=== PATIENT | female | born 1930 | race Caucasian/White ===

== ENCOUNTER → 2016-06-14 | Outpatient (REF) ==
[~2016-06-14] MED LIST: ALDA50TA2 PO; CIPR500T89 PO; COLA50CA3 PO; DRISDOL PO; ERGO5000 PO; METO50TA4 PO; OMEP40CA2 PO; POTA10TA18 PO; PRIN10TA PO; SPIR25TA2 PO; SYNT100T PO; SYNT88TA2 PO; TYLE325T5 PO
[2016-06-15 10:26] LABS: CALCIUM OXALATE CRYSTALS SMALL
== END ==
PROVIDERS: ATTEND Nurse Practitioner Family
DX: R35.0 Frequency of micturition (principal)

== ENCOUNTER 2016-07-01 09:10 | Emergency (ER) | payer MEDICARE, MEDICAID ==
[~2016-07-01] VITALS: Ht 149.9 cm; Wt 76.7 kg
[2016-07-01] MEDS ORDERED: LISI-538 PO (09:46)
[2016-07-01] MEDS ORDERED: VITA200016 PO (09:46)
[2016-07-01] MEDS ORDERED: ACET650T2 PO (09:46)
[2016-07-01] MEDS ORDERED: METO200T15 PO (09:46)
[2016-07-01] MEDS ORDERED: [UNRECOGNIZED DRUG - CODE] PO (09:46)
[2016-07-01] MEDS ORDERED: LEVO88TA3 PO (09:46)
[2016-07-01] MEDS ORDERED: PREG50CA PO (09:46)
[2016-07-01] MEDS ORDERED: SPIR50TA2 PO (09:46)
[2016-07-01] MEDS ORDERED: ASPI81TA85 PO (09:46)
[2016-07-01] MEDS ORDERED: PRESCAP6 PO (09:46)
[2016-07-01] MEDS ORDERED: MIRT1TAB PO (09:46)
--- NOTE | 2016-07-01 10:25 | REP ---
Altered mental status. COMPARISON: 04/01/2013 Cerebral and cerebellar atrophic changes are noted status quo with periventricular lucencies and deep white matter lucencies consistent with deep white matter ischemic disease, also stable. There is no shift of the midline structures. There is no change in the appearance of the ventricles or sulci. There is no evidence of an acute intracranial hemorrhagic or non-hemorrhagic event. There is no change in the appearance of the skull. There is mucosal thickening in the ethmoid bulla and sphenoid sinuses. IMPRESSION: No evidence of acute intracranial pathology with chronic changes as described above. Paranasal sinus mucosal thickening as described above. Signed by Danyel Garcia DO 07/01/2016 11:29 A
[2016-07-01 10:41] LABS: MEAN CORPUSCULAR HEMOGLOBIN 31.1 pg (27.0-33.0); MEAN CORPUSCULAR HGB CONC 32.7 g/dl (32.0-36.5); MEAN CORPUSCULAR VOLUME 95.3 fl (80.0-96.0); PLATELET COUNT, AUTOMATED 252 k/mm3 (150-450); RED CELL DISTRIBUTION WIDTH 12.5 % (11.5-14.5); WHITE BLOOD COUNT 9.5 K/mm3 (4.0-10.0)
[2016-07-01 10:51] LABS: ALBUMIN 3.7 GM/DL (3.2-5.2); BILIRUBIN,DIRECT 0.2 MG/DL (0.0-0.2); CALCIUM LEVEL 10.8 MG/DL (8.8-10.2); CREATININE FOR GFR 1.08 MG/DL (0.55-1.02); POTASSIUM SERUM 4.3 MEQ/L (3.5-5.1); TOTAL PROTEIN 7.4 GM/DL (6.4-8.2)
[2016-07-01 11:04] LABS: BANDS 3 % (< 11); BASOPHILS 1 % (0-4)
[2016-07-01 11:05] LABS: ANISOCYTOSIS 1+
[2016-07-01 13:39] VITALS: BP 125/57
--- NOTE | 2016-07-01 18:00 | ECGEPIP ---
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
== END 2016-07-01 13:46 | disposition home or self-care (01) ==
LOC: EDBD 09:10 → M ED 10:52
DX: R29.6 Repeated falls (principal); Z79.899 Other long term (current) drug therapy

== ENCOUNTER 2016-07-03 12:11 | Emergency (ER) | payer MEDICARE, MEDICAID ==
[~2016-07-03] VITALS: Ht 152.4 cm; Wt 63.5 kg
[~2016-07-03 12:11] MED LIST changes: +ACET650T2 PO; +ASPI81TA85 PO; +LEVO88TA3 PO; +LISI-538 PO; +METO200T15 PO; +MIRT1TAB PO; +PREG50CA PO; +PRESCAP6 PO; +SPIR50TA2 PO; +VITA200016 PO; +[UNRECOGNIZED DRUG - CODE] PO
[2016-07-03] MEDS ORDERED: NS 500 ML IV ONE (13:00)
[2016-07-03 13:29] LABS: BASO % 0.5 % (0.0-1.0); EOS # 0.4 K/mm3 (0.0-0.50); EOS % 5.4 % (0.0-3.0); LARGE UNSTAINED CELL # 0.2 K/mm3 (0.0-0.4); LARGE UNSTAINED CELL % 3.5 % (0.0-4.0); LYMPH # 1.6 K/mm3 (1.5-4.5); LYMPH % 23.8 % (24.0-44.0); MEAN CORPUSCULAR HEMOGLOBIN 30.1 pg (27.0-33.0); MEAN CORPUSCULAR HGB CONC 32.3 g/dl (32.0-36.5); MEAN CORPUSCULAR VOLUME 93.1 fl (80.0-96.0); MONO # 0.5 K/mm3 (0.0-0.8); MONO % 7.5 % (0.0-5.0); NEUTROPHILS % 59.3 % (36.0-66.0); PLATELET COUNT, AUTOMATED 232 k/mm3 (150-450); RED CELL DISTRIBUTION WIDTH 12.7 % (11.5-14.5); WHITE BLOOD COUNT 6.8 K/mm3 (4.0-10.0)
[2016-07-03 13:36] LABS: ALBUMIN 3.2 GM/DL (3.2-5.2); ALBUMIN/GLOBULIN RATIO 0.89 (1.00-1.93); BILIRUBIN,DIRECT 0.1 MG/DL (0.0-0.2); BILIRUBIN,TOTAL 0.6 MG/DL (0.2-1.0); CALCIUM LEVEL 10.5 MG/DL (8.8-10.2); CREATININE FOR GFR 1.06 MG/DL (0.55-1.02); GLOMERULAR FILTRATION RATE 52.1 (>32); POTASSIUM SERUM 4.2 MEQ/L (3.5-5.1); TOTAL PROTEIN 6.8 GM/DL (6.4-8.2)
--- NOTE | 2016-07-03 15:32 | REP ---
CT BRAIN WITHOUT CONTRAST: 07/03/2016. Clinical history: Lower cervical spine tenderness. The patient fell 2 days ago[address] Negative head CT at that time. Comparison: None. Technique: Axial soft-tissue and bone window settings with coronal and sagittal bone reconstructions provided. Sagittal reconstructions show straightening of the normal cervical lordosis. There is spondylosis with marked narrowing of the disc space at C5-6 and C6-7 including anterior and posterior osteophytes at both of those levels and also at T1-2. There is narrowing with smaller osteophytes at C7-T1. Disc space heights at the C2-3 through C4-5 levels are maintained. There are lucencies suggesting erosions in the dens and a expanded pannus with thin rim calcification. There is air in the small space between the dens and anterior arch of the C1 vertebral body appearing to extend from the pannus is an air bubble at its margin and then some in the neural canal at the craniocervical junction. I am not aware of the recent spinal tap. There is an erosion at the distal end of the C7 spinous process and there is a pannus or extensive calcification forming along the posterior longitudinal ligament adjacent to the C7 and T1 spinous processes up towards T6, this may what you are palpating on clinical examination. I do not see an acute compression fracture of any these vertebral bodies. The skull base portion included was without fracture or destructive lesion. The pannus has a diameter of 19 mm vertical x 12.7 mm AP x 22 mm transverse. It has some extension anteriorly below the anterior arch of C1 and is circumferential around the dens. This is causing some central canal stenosis with the AP canal diameter diminished at 8.6 mm at the normally capacious craniocervical junction and C1 level. At C2-3 there is no disc bulge or herniation and no spinal or foraminal stenosis. At C3-4 small posterior osteophytic ridges without spinal stenosis. The foramen on the right is ample on the left with some uncinate and facet spurs mildly narrowed. At C4-5 minimal disc bulge without spinal stenosis. The foramen is slightly narrowed on the left, normal on the right. At C5-6 posterior osteophytic ridging with our disc and asymmetric bulge towards the right central canal marginally adequate foramina mildly stenotic bilaterally due to combined factors. At C6-7 posterior osteophytic ridging causing central canal stenosis with the foramina adequate on the left and marginally adequate on the right. At C7-T1 there is a few millimeters of anterolisthesis of C7 on T1 felt related to facet arthritis. There is no central canal stenosis. Foramina show mild encroachment on the left and right due to uncinate spurs. At T1-T2 posterior osteophytic ridges without central canal stenosis. Foramina adequate. Posterior ribs grossly intact. The lung apices without pneumothorax or infiltrate. There is no effusion in the upper chest. There is also pannus over medial clavicular joints with the manubrium. Bones are demineralized. Impression: 1. The expansile mass arising from the dens with a rim calcification indicating that this is a chronic finding (and not an acute injury) with erosive changes in the dens and narrowing of the dens anterior arch of C1 interval. This causes central canal stenosis with AP canal diameter only 8.6 mm. 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 In addition there were a few air bubbles immediately adjacent to this pannus anterior to the cord at the craniocervical junction and one of them is at the margin of the pannus with air in the interval between the anterior arch of C1 and dens. If the patient has not had a spinal tap recently than air from this location and a degenerative phenomenon related to the pannus verses infection would have to be considered. This may also be still in the epidural space displaced by the significant pannus. 2. Degenerative disc changes at other levels, greatest at the C5-6 and C6-7 with central canal stenosis and some scattered areas of foraminal encroachment. Facet arthropathy noted at multiple levels throughout the spine. 3. Extensive calcification along the posterior longitudinal ligament and adjacent and surrounding the posterior margins of C7 and T1 spinous processes up to C6. Again this suggests spondyloarthropathy. MR may be helpful for evaluation of cervical cord as the proximal cervical cord would have stenosis at the level of C1 where this large pannus is present. All of this was discussed with Dr. Lu from the emergency room, by phone. Signed by Jeovanny Frank MD 07/03/2016 05:13 P
--- NOTE | 2016-07-03 16:44 | REP ---
Cervical spine series: Nine views: History: Please do flexion/extension in soft collar. Findings: Lateral views done in flexion/extension show no subluxation between the dens and C1. There is advanced osteoarthritis and narrowing between the anterior arch of C1 and the dens. The clivus is not well seen on these lateral views. There are degenerative disc changes at C4-5, C5-6, and C6-7. Some facet hypertrophy is seen in the midcervical spine. C1-2 alignment is normal on open-mouth odontoid views. The patient is edentulous. Oblique radiographs do not show neural foramina optimally. Impression: No evidence of C1-C2 instability on flexion and extension lateral views. The position of the clivus and skull base structures are less than optimally seen on these views. Osteoarthritic facet disease and degenerative disc disease noted. Signed by Ruben Burrell MD 07/03/2016 07:20 P
--- NOTE | 2016-07-03 18:42 | REP ---
MRI cervical spine without contrast: History: Evaluate for spinal stenosis. Pain in the lower cervical spine. Comparison is made with CT images from earlier on this date. Plain radiographs are also obtained today. Technique: Sagittal and axial T1 and T2-weighted scans are acquired in the usual fashion with and without fat saturation. Sequences include spin echo, turbo spin-echo, and STIR imaging sequences. MRI findings: At the craniocervical junction there is a large amount of odontoid pannus tissue and in the epidural space at the ventral aspect of the craniocervical junction. This disc displaces the cord dorsally and produces central canal stenosis mild in degree at the C1 and upper C2 level. AP dimension of the canal at this level is 8 mm in midline sagittal dimension. There is subarachnoid space seen ventral and dorsal to the cord at this level. However, higher up, at the tip of the clivus along rostral edge of the pannus there is a T2 hyperintense, T1 hypointense lesion compatible with a synovial cyst producing fairly impressive dorsal displacement of the cervicomedullary junction. This presumed synovial cyst measures 18 mm in anteroposterior span by 12 mm craniocaudal by 15 mm medial to lateral. The cyst and occupies space between the to distal vertebral arteries. The cervical medullary junction is compressed along its ventral aspect particularly to the left of midline and displaced dorsally 5-7 mm. At C5-6 there is degenerative disc disease and posterior osteophytic ridging with mild central canal stenosis and right-sided uncovertebral spurring and neural foraminal narrowing. There is mild left-sided uncovertebral spurring. At C6-7 there are similar findings with bilateral uncovertebral spurring. No significant central canal stenosis is seen. There are degenerative disc changes in the upper thoracic spine and a central small disc protrusion is seen at the T3-4 disc level in the upper thoracic spine. No extra spinal abnormality is seen. Impression: 1. Degenerative spondylosis in the lower cervical spine with C5-6 central canal stenosis and bilateral uncovertebral spurring. 2. Mild uncovertebral spurring bilaterally at C6-7. 3. 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 There is mild central canal stenosis at C1-C2 level. 4. 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 This measures 18 x 12 x 15 mm. Signed by Ruben Burrell MD 07/03/2016 07:22 P
[2016-07-03 20:43] VITALS: BP 141/68
--- NOTE | 2016-07-04 08:55 | ECGEPIP ---
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
== END 2016-07-03 21:17 | disposition home or self-care (01) ==
LOC: EDBD 12:11 → M ED 13:10
DX: R11.0 Nausea (principal); R19.7 Diarrhea, unspecified; M71.30 Other bursal cyst, unspecified site; M47.812 Spondylosis without myelopathy or radiculopathy, cervical region; I12.9 Hypertensive chronic kidney disease with stage 1 through stage 4 chronic kidney disease, or unspecified chronic kidney disease; N18.3 Chronic kidney disease, stage 3 (moderate); M19.90 Unspecified osteoarthritis, unspecified site
CPT/HCPCS: 72052; 72125; 72156; 80048; 80076; 81001; 83605; 83690; 85025; 93005; 93041; 96360; 99285; A9576

== ENCOUNTER → 2016-07-26 | Outpatient (REF) | payer MEDICARE, MEDICAID ==
[~2016-07-26] MED LIST changes: +CETI10TA PO; +CIPR-250 PO; +SALI0.653
== END ==
PROVIDERS: ATTEND Internal Medicine
DX: R31.29 Other microscopic hematuria (principal)

== ENCOUNTER 2016-07-28 13:21 | Emergency (ER) | payer MEDICARE, MEDICAID ==
[~2016-07-28] VITALS: Ht 149.9 cm; Wt 76.7 kg
[~2016-07-28 13:21] MED LIST changes: -CETI10TA PO; -CIPR-250 PO; -SALI0.653
[2016-07-28] MEDS ORDERED: CETI10TA PO (13:54)
[2016-07-28] MEDS ORDERED: SALI0.653 (13:54)
[2016-07-28] MEDS ORDERED: CIPR-250 PO (13:54)
[2016-07-28 16:09] LABS: BASO # 0.1 K/mm3 (0.0-0.2); BASO % 0.7 % (0.0-1.0); EOS # 0.4 K/mm3 (0.0-0.50); EOS % 5.1 % (0.0-3.0); LARGE UNSTAINED CELL # 0.1 K/mm3 (0.0-0.4); LARGE UNSTAINED CELL % 1.6 % (0.0-4.0); LYMPH # 2.1 K/mm3 (1.5-4.5); LYMPH % 22.4 % (24.0-44.0); MEAN CORPUSCULAR HEMOGLOBIN 30.3 pg (27.0-33.0); MEAN CORPUSCULAR HGB CONC 31.7 g/dl (32.0-36.5); MEAN CORPUSCULAR VOLUME 95.5 fl (80.0-96.0); MONO # 0.4 K/mm3 (0.0-0.8); MONO % 5.1 % (0.0-5.0); NEUTROPHILS # 5.6 K/mm3 (1.8-7.7); PLATELET COUNT, AUTOMATED 261 k/mm3 (150-450); RED CELL DISTRIBUTION WIDTH 12.7 % (11.5-14.5); WHITE BLOOD COUNT 8.6 K/mm3 (4.0-10.0)
[2016-07-28 16:21] LABS: CALCIUM LEVEL 13.3 MG/DL (8.8-10.2); CREATININE FOR GFR 1.12 MG/DL (0.55-1.02); GLOMERULAR FILTRATION RATE 48.9 (>32); THYROXINE (T4) 8.8 UG/DL (4.5-12.0)
[2016-07-28 16:30] LABS: POTASSIUM SERUM 5.3 MEQ/L (3.5-5.1)
[2016-07-28] MEDS ORDERED: CIPROFLOXACIN 500 MG TAB PO ONE (16:30)
[2016-07-28] MEDS ORDERED: CIPR500T89 PO (16:55)
[2016-07-28 20:03] VITALS: BP 128/65
== END 2016-07-28 20:05 | disposition home or self-care (01) ==
LOC: EDBD 13:21 → M ED 16:22
DX: N39.0 Urinary tract infection, site not specified (principal); I12.9 Hypertensive chronic kidney disease with stage 1 through stage 4 chronic kidney disease, or unspecified chronic kidney disease; M19.90 Unspecified osteoarthritis, unspecified site; N18.9 Chronic kidney disease, unspecified; E03.9 Hypothyroidism, unspecified; F03.90 Unspecified dementia, unspecified severity, without behavioral disturbance, psychotic disturbance, mood disturbance, and anxiety; Z88.5 Allergy status to narcotic agent; Z88.6 Allergy status to analgesic agent; Z88.2 Allergy status to sulfonamides; Z79.82 Long term (current) use of aspirin; Z79.899 Other long term (current) drug therapy

== ENCOUNTER → 2016-08-04 | Outpatient (REF) | payer MEDICARE, MEDICAID ==
[~2016-08-04] MED LIST changes: +CETI10TA PO; +CIPR-250 PO; +SALI0.653
== END ==
LOC: SKLAB3 09:51
PROVIDERS: ATTEND Internal Medicine
DX: R53.83 Other fatigue (principal)

== ENCOUNTER → 2016-08-04 | Outpatient (REF) | payer MEDICARE, MEDICAID ==
[2016-08-04 07:59] LABS: CALCIUM LEVEL 13.4 MG/DL (8.8-10.2); CREATININE FOR GFR 1.21 MG/DL (0.55-1.02); GLOMERULAR FILTRATION RATE 44.7 (>32); POTASSIUM SERUM 4.6 MEQ/L (3.5-5.1)
== END ==
LOC: SKLAB3 02:26
PROVIDERS: ATTEND Internal Medicine
DX: I10 Essential (primary) hypertension (principal); E83.52 Hypercalcemia; R29.818 Other symptoms and signs involving the nervous system; R53.83 Other fatigue

== ENCOUNTER → 2016-08-07 | Outpatient (REF) | payer MEDICARE, MEDICAID ==
[2016-08-07 10:52] LABS: CALCIUM LEVEL 12.8 MG/DL (8.8-10.2); GLOMERULAR FILTRATION RATE 55.7 (>32); POTASSIUM SERUM 4.1 MEQ/L (3.5-5.1)
[2016-08-07 13:38] LABS: PHOSPHORUS LEVEL 1.9 MG/DL (2.5-4.9)
== END ==
LOC: SKLAB3 09:06
PROVIDERS: ATTEND Internal Medicine
DX: E03.9 Hypothyroidism, unspecified (principal); N39.0 Urinary tract infection, site not specified

== ENCOUNTER → 2016-08-08 | Outpatient (REF) | payer MEDICARE, MEDICAID ==
[2016-08-08 10:50] LABS: ANION GAP 6 MEQ/L (8-16); BLOOD UREA NITROGEN 17 MG/DL (7-18); CARBON DIOXIDE LEVEL 26 MEQ/L (21-32); CHLORIDE LEVEL 111 MEQ/L (98-107); CREATININE FOR GFR 0.92 MG/DL (0.55-1.02); GLOMERULAR FILTRATION RATE > 60.0 (>32); GLUCOSE, FASTING 98 MG/DL (83-110); PHOSPHORUS LEVEL 1.5 MG/DL (2.5-4.9); SODIUM LEVEL 143 MEQ/L (136-145)
== END ==
LOC: SKLAB3 09:43
PROVIDERS: ATTEND Family Medicine
DX: E83.52 Hypercalcemia (principal)

== ENCOUNTER → 2016-08-10 | Outpatient (REF) | payer MEDICAID, MEDICARE ==
[~2016-08-10] MED LIST changes: +ACET-654 PO; +ASPI81CH PO; +CALC1CAP31 PO; +CINA30TA PO; +DULC10SU2 PR; +ENEMENE3 PR; +LISI10TA4 PO; +MOM30SS PO; +MULT1TAB10 PO; +PROC1CRE5 PR
[2016-08-10 11:25] LABS: ANION GAP 7 MEQ/L (8-16); BLOOD UREA NITROGEN 14 MG/DL (7-18); CALCIUM LEVEL 12.6 MG/DL (8.8-10.2); CARBON DIOXIDE LEVEL 27 MEQ/L (21-32); CHLORIDE LEVEL 107 MEQ/L (98-107); CREATININE FOR GFR 0.89 MG/DL (0.55-1.02); GLOMERULAR FILTRATION RATE > 60.0 (>32); GLUCOSE, FASTING 94 MG/DL (83-110); POTASSIUM SERUM 4.1 MEQ/L (3.5-5.1); SODIUM LEVEL 141 MEQ/L (136-145)
== END ==
LOC: SKLAB3 07:00
PROVIDERS: ATTEND Family Medicine
DX: E83.52 Hypercalcemia (principal)

== ENCOUNTER → 2016-08-14 | Outpatient (REF) ==
[2016-08-14 09:35] LABS: CALCIUM LEVEL 14.7 MG/DL (8.8-10.2); CREATININE FOR GFR 1.12 MG/DL (0.55-1.02); GLOMERULAR FILTRATION RATE 48.9 (>32); POTASSIUM SERUM 3.6 MEQ/L (3.5-5.1)
== END ==
LOC: SKLAB3 12:47
PROVIDERS: ATTEND Family Medicine
DX: Z51.81 Encounter for therapeutic drug level monitoring (principal); Z79.899 Other long term (current) drug therapy; I10 Essential (primary) hypertension

== ENCOUNTER 2016-08-15 13:38 | Inpatient (IN) | payer MEDICARE, MEDICAID ==
[~2016-08-15] VITALS: Ht 154.9 cm; Wt 75.1 kg
[~2016-08-15 13:38] MED LIST changes: -ACET-654 PO; -ASPI81CH PO; -CALC1CAP31 PO; -CINA30TA PO; -DULC10SU2 PR; -ENEMENE3 PR; -LISI10TA4 PO; -MOM30SS PO; -MULT1TAB10 PO; -PROC1CRE5 PR
[2016-08-15] MEDS ORDERED: MULT1TAB10 PO (14:14)
[2016-08-15] MEDS ORDERED: CALC1CAP31 PO (14:14)
[2016-08-15] MEDS ORDERED: CINA30TA PO (14:14)
--- NOTE | 2016-08-15 15:00 | REP ---
Chest two views HISTORY: Cough Comparison: 03/22/2012 A diffuse increase in interstitial markings is present in the lungs consistent with chronic interstitial fibrosis. The cardiac silhouette is enlarged. The pulmonary vasculature is normal in appearance. The bony structure is intact. IMPRESSION: 1. Chronic interstitial fibrosis. 2. Cardiomegaly. Signed by Demond Holland MD 08/15/2016 02:52 P
[2016-08-15 15:18] LABS: BASO % 0.3 % (0.0-1.0); EOS # 0.1 K/mm3 (0.0-0.50); EOS % 0.7 % (0.0-3.0); LARGE UNSTAINED CELL # 0.1 K/mm3 (0.0-0.4); LARGE UNSTAINED CELL % 0.7 % (0.0-4.0); LYMPH # 1.1 K/mm3 (1.5-4.5); LYMPH % 9.2 % (24.0-44.0); MEAN CORPUSCULAR HEMOGLOBIN 30.9 pg (27.0-33.0); MEAN CORPUSCULAR HGB CONC 32.5 g/dl (32.0-36.5); MONO # 0.5 K/mm3 (0.0-0.8); MONO % 4.2 % (0.0-5.0); NEUTROPHILS # 9.2 K/mm3 (1.8-7.7); PLATELET COUNT, AUTOMATED 249 k/mm3 (150-450); RED CELL DISTRIBUTION WIDTH 12.9 % (11.5-14.5); WHITE BLOOD COUNT 10.8 K/mm3 (4.0-10.0)
[2016-08-15 15:41] LABS: ALBUMIN/GLOBULIN RATIO 1.08 (1.00-1.93); BILIRUBIN,DIRECT 0.5 MG/DL (0.0-0.2); BILIRUBIN,TOTAL 2.3 MG/DL (0.2-1.0); CREATININE FOR GFR 1.18 MG/DL (0.55-1.02); MAGNESIUM LEVEL 1.2 MG/DL (1.8-2.4); POTASSIUM SERUM 4.1 MEQ/L (3.5-5.1); TOTAL PROTEIN 7.7 GM/DL (6.4-8.2)
[2016-08-15 15:43] LABS: CALCIUM LEVEL 14.8 MG/DL (8.8-10.2)
[2016-08-15] MEDS: PREGABALIN 50 MG CAP (LYRICA) PO SCH ×3 (16:00→22:10)
[2016-08-15] MEDS ORDERED: NS 1,000 ML IV SCH (16:13)
[2016-08-15] MEDS ORDERED: PROC1CRE5 PR (16:23)
[2016-08-15] MEDS ORDERED: ENEMENE3 PR (16:23)
[2016-08-15] MEDS ORDERED: DULC10SU2 PR (16:23)
[2016-08-15] MEDS ORDERED: LISI10TA4 PO (16:23)
[2016-08-15] MEDS ORDERED: ASPI81CH PO (16:23)
[2016-08-15] MEDS ORDERED: MOM30SS PO (16:23)
[2016-08-15] MEDS ORDERED: ACET-654 PO (16:25)
[2016-08-15] MEDS ORDERED: MAG SULF 1GM/100ML (MAG RUN) 1 GM in APPROPRIATE DILUENT 1 EA IV ONE (16:30)
[2016-08-15] MEDS ORDERED: ACETAMINOPHEN TAB 650MG DOSE (2X325MG) PO PRN (16:30)
[2016-08-15] MEDS ORDERED: MOM 30ML SUSPENSION UDC PO PRN (16:45)
[2016-08-15] MEDS ORDERED: FLEET ENEMA PR PRN (16:45)
[2016-08-15] MEDS ORDERED: BISACODYL 10 MG SUPP PR PRN (16:45)
--- NOTE | 2016-08-15 16:49 | HPEPDOC ---
General Date of Admission Aug 15, 2016 at 16:31 Chief Complaint The patient is a 86-year-old female Presented from [facility] because of elevated calcium History of Present Illness Patient is an 86 year old female with a PMHx of Dementia, CKD3, Hypothyroidism, HTN, Osteoarthritis and Unsteady gait. She recently had a urinary tract infection which has resolved. Patient was transferred from [facility] because she was found to have an elevated calcium level on blood work. Patient is only oriented to person. She is unable to provide details to her history. Majority of the information was acquired from her medical record and ER physician report. Home Medications Scheduled (Preservision Areds 2) 1 Cap Cap 1 CAP PO BID (Reported) (Aspirin) 81 Mg Chw 81 MG PO DAILY (Reported) Calcitriol (Calcitriol) 0.25 Mcg Cap 0.25 MCG PO DAILY (Reported) Cinacalcet Hydrochloride (Sensipar) 30 Mg Tab 30 MG PO DAILY (Reported) Levothyroxine Sodium (Synthroid) 88 Mcg Tab 88 MCG PO DAILY (Reported) Lisinopril (Lisinopril) 10 Mg Tab 10 MG PO DAILY (Reported) Mirtazapine (Mirtazapine) 7.5 Mg Tab 7.5 MG PO QHS (Reported) Multivitamins (Multivitamin Adults) 1 Tab Tab 1 TAB PO DAILY (Reported) Pregabalin (Lyrica) 50 Mg Cap 50 MG PO TID (Reported) Vitamin D (Vitamin D) 2,000 Unit Cap 2,000 UNIT PO DAILY (Reported) Scheduled PRN (Saline Nasal Shepherd) 0.65 % Spr 0.65 % NA Q2H PRN PRN NASAL DRYNESS (Reported) (Proctozone-Hc) 2.5 % Cre 2.5 % PA Q4H PRN PRN HEMORRHOIDS (Reported) Acetaminophen (Acetaminophen) 325 Mg Tab 650 MG PO Q4H PRN PRN PAIN OR FEVER ( Reported) Bisacodyl (Dulcolax) 10 Mg Sup 10 MG PA DAILY PRN PRN CONSTIPATION (Reported) Cetirizine HCl (Cetirizine HCl) 10 Mg Tab 10 MG PO DAILY PRN PRN allergies ( Reported) Milk Of Magnesia (Milk of Magnesia Concentr) 30 Ml Conc 10 ML PO PRN CONSTIPATION (Reported) Sodium Phosphate/Biphosphate (Enema 7-19 gm/118Ml) 1 Opal Opal 1 OPAL PA DAILY PRN PRN CONSTIPATION (Reported) Allergies Coded Allergies: Sulfa Drugs (Verified Allergy, Intermediate, RASH HIVES, 04/01/13) Codeine (Verified Allergy, Mild, RED FLUSHING RASH, 04/01/13) Ibuprofen (Verified Allergy, Mild, RED FLUSHING RASH, 04/01/13) Meperidine (Verified Allergy, Mild, RED FLUSHING RASH, 04/01/13) Morphine (Verified Allergy, Mild, RED FLUSHING RASH, 04/01/13) Propoxyphene (Verified Adverse Reaction, Mild, NAUSEA, 04/02/13) Past Medical History Medical History Dementia, CKD3, Hypothyroidism, HTN, Osteoarthritis and Unsteady gait Surgical History Appendectomy Total hysterectomy [place] tooth extraction Dentures on lower palate Family History - Non-contributory Social History - Unable to acquire Review of Symptoms Other systems - unable to acquire Vital Signs - Vitals: BP 155/87, HR 84, RR 18, Sat 95%RA, Temp 99.2 - General: Lying in bed, No acute distress, Speaking in full sentences, AAOx1 ( Person only) - HEENT: NC, AT, PERRLA, EOMI - CVS: RRR, +S1S2, - Lungs: Fair air entry bilaterally, No appreciable crackles / wheezing / rhonchi - Abdomen: Soft, Non-distended, Non-tender, + Bowel sounds x 4 - Extremities: + PPx4, No lower extremity edema, No calf tenderness - Neuro: No focal motor or sensory deficit - Skin: No visible rashes Laboratory Data Labs 24H Laboratory Tests 2 08/15/16 15:01: Aspartate Amino Transf (AST/SGOT) 23, Alanine Aminotransferase (ALT/SGPT) 24, Alkaline Phosphatase 97, Total Bilirubin 2.3H, Direct Bilirubin 0.5H, Albumin 4.0, Albumin/Globulin Ratio 1.08, Anion Gap 7L, White Blood Count 10.8H, Red Blood Count 4.28, Hemoglobin 13.2, Hematocrit 40.7, Mean Corpuscular Volume 95.0 , Mean Corpuscular Hemoglobin 30.9, Mean Corpuscular Hemoglobin Concent 32.5, Red Cell Distribution Width 12.9, Platelet Count 249, Neutrophils (%) (Auto) 85.0H, Lymphocytes (%) (Auto) 9.2L, Monocytes (%) (Auto) 4.2, Eosinophils (%) ( Auto) 0.7, Basophils (%) (Auto) 0.3, Neutrophils # (Auto) 9.2H, Lymphocytes # ( Auto) 1.1L, Monocytes # (Auto) 0.5, Eosinophils # (Auto) 0.1, Basophils # (Auto ) 0.0, Calcium Level 14.8*H, Glomerular Filtration Rate 46.0, Large Unclassified Cells # 0.1, Large Unclassified Cells % 0.7, Magnesium Level 1.2L, Phosphorus Level 3.0, Total Protein 7.7 CBC/BMP Laboratory Tests 08/15/16 15:01 Red Blood Count 4.28, Mean Corpuscular Volume 95.0, Mean Corpuscular Hemoglobin 30.9, Mean Corpuscular Hemoglobin Concent 32.5, Red Cell Distribution Width 12.9 , Neutrophils (%) (Auto) 85.0 H, Lymphocytes (%) (Auto) 9.2 L, Monocytes (%) ( Auto) 4.2, Eosinophils (%) (Auto) 0.7, Basophils (%) (Auto) 0.3, Neutrophils # ( Auto) 9.2 H, Lymphocytes # (Auto) 1.1 L, Monocytes # (Auto) 0.5, Eosinophils # ( Auto) 0.1, Basophils # (Auto) 0.0 Plan / VTE VTE Prophylaxis Ordered?: Yes Plan Plan Acute metabolic encephalopathy possibly 2/2 hypercalcemia; possibly 2/2 worsening Dementia - See below - c/w Cinacalcet Hypercalcemia, likely symptomatic - possibly 2/2 prolonged immobility, possibly 2/2 malignancy, possibly 2/2 medications, possibly primary hyperparathyroidism - Transferred from [facility] because of an elevated calcium level of 14.7 - Patient is oriented to person only; not place or time - Physical does not reveal any signs of fluid overload at this time - Labs shows calcium of 14.7; albumin of 4.0 - Will check Vitamin D (25-OH), PTH, PTHrP, Ionized calcium - Will stop calcitriol and Vitamin D for now - Will start IV fluid hydration with NS - Will continue with Furosemide to maintain euvolemic - Will continue to monitor for signs of fluid overload and adjust Lasix / Fluid accordingly Leukocytosis possibly 2/2 infectious etiology, possibly reactive - No fevers recorded - CBC shows neutrophil predominance - Patient unable to provide details from ROS - Recent history of UTI - CXR negative for any acute infiltrates - Will check UA and Urine culture Hypomagnesemia - will supplement via IV Hypothyroidism - c/w Levothyroxine CKD3 - Baseline Cr of 0.9-1.2 - Cr at baseline currently HTN - c/w Lisinopril Osteoarthritis - c/w Tyelnol PRN Consitpation - c/w bowel regimen Unsteady gait - will order physical therapy DVT prophylaxis - Will start SCDs ELYSSA AGUIAR MD Aug 15, 2016 16:49
[2016-08-15] MEDS: NS 1,000 ML IV SCH (17:01)
--- NOTE | 2016-08-15 18:11 | ECGEPIP ---
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
[2016-08-15 20:06] VITALS: BP 152/89
[2016-08-15] MEDS: MIRTAZAPINE 7.5MG PER 1/2 TABLET PO SCH ×2 (21:00→22:10)
[2016-08-15 23:46] VITALS: BP 102/52
[2016-08-16 03:55] VITALS: BP 115/58
[2016-08-16 05:41] LABS: BASO % 0.3 % (0.0-1.0); EOS # 0.2 K/mm3 (0.0-0.50); EOS % 2.2 % (0.0-3.0); LARGE UNSTAINED CELL # 0.1 K/mm3 (0.0-0.4); LARGE UNSTAINED CELL % 1.4 % (0.0-4.0); LYMPH # 1.6 K/mm3 (1.5-4.5); LYMPH % 17.8 % (24.0-44.0); MEAN CORPUSCULAR HEMOGLOBIN 30.8 pg (27.0-33.0); MEAN CORPUSCULAR HGB CONC 32.4 g/dl (32.0-36.5); MONO # 0.7 K/mm3 (0.0-0.8); MONO % 7.8 % (0.0-5.0); NEUTROPHILS # 5.9 K/mm3 (1.8-7.7); NEUTROPHILS % 70.6 % (36.0-66.0); PLATELET COUNT, AUTOMATED 260 k/mm3 (150-450); RED CELL DISTRIBUTION WIDTH 12.9 % (11.5-14.5); WHITE BLOOD COUNT 8.3 K/mm3 (4.0-10.0)
[2016-08-16 06:08] LABS: ALBUMIN 3.2 GM/DL (3.2-5.2); ALBUMIN/GLOBULIN RATIO 0.94 (1.00-1.93); BILIRUBIN,TOTAL 1.8 MG/DL (0.2-1.0); CALCIUM LEVEL 14.9 MG/DL (8.8-10.2); CREATININE FOR GFR 1.3 MG/DL (0.55-1.02); GLOMERULAR FILTRATION RATE 41.2 (>32); MAGNESIUM LEVEL 1.4 MG/DL (1.8-2.4); TOTAL PROTEIN 6.6 GM/DL (6.4-8.2)
[2016-08-16 07:45] VITALS: BP 122/70
[2016-08-16] MEDS: PREGABALIN 50 MG CAP (LYRICA) PO SCH ×4 (08:44→22:46)
[2016-08-16] MEDS: ASPIRIN 81 MG CHEW TABLET PO SCH (08:44)
[2016-08-16] MEDS: LISINOPRIL 10 MG TAB PO SCH (08:44)
[2016-08-16] MEDS: NS 1,000 ML IV SCH ×2 (08:44→13:57)
[2016-08-16] MEDS: LEVOTHYROXINE 0.088 MG TAB (88 MCG) PO SCH (08:45)
[2016-08-16] MEDS: MULTIVITAMINS/MINERALS THERAP 1 TAB PO SCH (08:45)
[2016-08-16] MEDS: CINACALCET 30 MG TAB (SENSIPAR) PO SCH ×4 (09:00→22:46)
[2016-08-16] MEDS ORDERED: CINACALCET 30 MG TAB (SENSIPAR) PO SCH (09:00)
[2016-08-16] MEDS: NYSTATIN 100,000 UNITS/GM TOPICAL PWD 15 GM TOP SCH ×2 (09:20→22:46)
[2016-08-16] MEDS: CALCITONIN SALMON (MIACALCIN) 400INTERNATIONAL UNITS/2ML INJ (J0630) SQ SCH ×2 (09:20→22:46)
[2016-08-16] MEDS ORDERED: MAGNESIUM OXIDE 400 MG TAB (MAG-OX) PO ONE (10:45)
[2016-08-16 12:00] VITALS: BP 128/73
[2016-08-16 12:52] LABS: ALBUMIN 3.6 GM/DL (3.2-5.2); CALCIUM LEVEL 14.8 MG/DL (8.8-10.2); CREATININE FOR GFR 1.38 MG/DL (0.55-1.02); GLOMERULAR FILTRATION RATE 38.4 (>32); PHOSPHORUS LEVEL 2.9 MG/DL (2.5-4.9); POTASSIUM SERUM 3.7 MEQ/L (3.5-5.1)
[2016-08-16 16:00] VITALS: BP 122/70
[2016-08-16 16:06] LABS: ALBUMIN 3.4 GM/DL (3.2-5.2); CALCIUM LEVEL 14.6 MG/DL (8.8-10.2); CREATININE FOR GFR 1.43 MG/DL (0.55-1.02); GLOMERULAR FILTRATION RATE 36.9 (>32); MAGNESIUM LEVEL 1.3 MG/DL (1.8-2.4); PHOSPHORUS LEVEL 2.6 MG/DL (2.5-4.9); POTASSIUM SERUM 3.7 MEQ/L (3.5-5.1)
--- NOTE | 2016-08-16 16:22 | REP ---
NUCLEAR SESTAMIBI PARATHYROID SCAN WITH SPECT IMAGING: Following the intravenous administration of 25.2 millicuries of technetium 99M sestamibi, multiple images of the neck are performed at 15 minutes and 3 hours postinjection. SPECT images are also performed three hours postinjection. The initial images show bilateral uptake in the salivary gland region which is symmetrical. There is bilateral thyroid activity. Delayed images show persistent salivary gland uptake bilaterally, unchanged. There is bilateral washout from the thyroid bed with mild residual activity on both sides. No focus of increased uptake is seen that would suggest the presence of parathyroid adenoma. IMPRESSION: No compelling scintigraphic evidence of parathyroid adenoma. Signed by Laron Watts MD 08/17/2016 04:46 P
[2016-08-16] MEDS: FUROSEMIDE 40 MG/4 ML VIAL (J1940) IV SCH (16:44)
[2016-08-16] MEDS ORDERED: NS 1,000 ML IV SCH (16:45)
[2016-08-16 17:05] VITALS: BP 153/83
[2016-08-16] MEDS: MAG SULF 1GM/100ML (MAG RUN) 1 GM in APPROPRIATE DILUENT 1 EA IV SCH ×3 (17:47→20:06)
--- NOTE | 2016-08-16 17:59 | IPN ---
DATE: 08/16/2016 86-year-old female seen at bedside. She does appear to be agitated. She is complaining of some abdominal pain and she does have quite a bit of confusion as well. Unable to get a more direct history from her. I did discuss with her daughter by phone and she stated that her mother had been in her normal state of health within the last couple weeks, had a urinary tract infection and then suddenly developed some increasing confusion. She was admitted last evening for an elevated calcium, which we have continued to give her IV normal saline and Lasix, Sensipar. She did get a dose of calcitonin this morning as well as Lasix. MEDICATIONS: Medication list is reviewed. I did notice she is on Remeron, which I am going to hold for the time being, since she did have a 3-second pause on telemetry this afternoon. OBJECTIVE: Temperature is 98.3, pulse 87, respiratory rate 81, blood pressure 128/73, SpO2 is 95% on room air. General: The patient appears to be in no acute distress, but she is confused and agitated. Throat is clear. Lungs: Clear. Heart: Regular rate and rhythm. Abdomen: Soft. Extremities: No edema, no calf tenderness. LABORATORY DATA: White count is 8.3, hemoglobin 11.3, platelets are 260,000, sodium 141, potassium 3.7, chloride 106, bicarb 6, anion gap 6, BUN is 29, creatinine 1.43, glucose is 96, calcium 14.6 with corrected based on her albumin. Her serum corrected calcium is 15.8. Ionized calcium 7.7, intact PTH is elevated at 609. She did have a nuclear medicine parathyroid scan, which did not show any abnormalities. Her 25 hydroxy vitamin D is 37.5. Pending labs include PTH, RP, 125 dihydroxy vitamin D and 24-hour urine collection for calcium. Chest x-ray on admission last night did show chronic interstitial fibrosis, otherwise no acute findings. PLAN: 1. Metabolic encephalopathy, likely related to hypercalcemia with worsening dementia. 2. Hypercalcemia with labs so far suggesting primary hyperparathyroidism. She still has a broad differential diagnosis at this point. Will continue with lab workup as indicated. She does appear to be relatively euvolemic. Will continue with IV normal saline at 200 mL an hour. Continue with 40 mg of IV Lasix daily. We did place a Lim catheter for urine calcium 24-hour collection and will request a nephrology consult since she does have some increasing creatinine and to help with fluid management. 3. Leukocytosis, appears likely to be reactive. She is afebrile. No signs of sepsis. No signs of infection at this point. 4. Hypomagnesemia. Will give her three magnesium runs. 5. Hypothyroidism. Continue with levofluoxine. 6. Chronic kidney disease (CKD), stage III with elevated creatinine. Again will request evaluation by nephrology. 7. Hypertension, stable. 8. Three second pause on telemetry. Again, she does have an electrolyte abnormality which we will continue to make adjustments to try to correct for her hypercalcemia as well as hypomagnesemia. Will plan on repeat renal profile, calcium and magnesium at 9-o'clock this evening. Will sign her out to overnight hospitalist to be sure that we are tracking. 9. Constipation with vague abdominal symptoms. This could be secondary to hypercalcemia as well. 10. Unsteady gait. Physical therapy is on board, however, she has not been actively able to engage today. 11. Deep venous thrombosis (DVT) prophylaxis with thromboembolism deterrents (TEDs) and Sequential compression devices (SCDs). DISPOSITION: I did have a lengthy discussion with the patient's daughter who is available. Unfortunately her healthcare proxy is not back from [place] until tomorrow. Her phone number was added to the chart and will try to make sure we update her as well. Currently the daughter that was available to talk to by phone informed me that she is a FULL CODE and has never been made a do not resuscitate, do not intubate to her knowledge. I did express to her that she has a grave prognosis at this point unless we can get her calcium and electrolytes treated. She voices understanding.
[2016-08-16 19:20] LABS: ALBUMIN 3.4 GM/DL (3.2-5.2); CALCIUM LEVEL 13.9 MG/DL (8.8-10.2); CREATININE FOR GFR 1.43 MG/DL (0.55-1.02); GLOMERULAR FILTRATION RATE 36.9 (>32); PHOSPHORUS LEVEL 2.6 MG/DL (2.5-4.9); POTASSIUM SERUM 3.6 MEQ/L (3.5-5.1)
[2016-08-16 20:06] VITALS: BP 143/71
[2016-08-16] MEDS: KCL 20MEQ in NS 1000ML 1,000 ML IV SCH (21:48)
[2016-08-17 04:15] VITALS: BP 117/71
[2016-08-17 05:50] LABS: BASO % 0.5 % (0.0-1.0); EOS # 0.2 K/mm3 (0.0-0.50); EOS % 2.8 % (0.0-3.0); LARGE UNSTAINED CELL # 0.1 K/mm3 (0.0-0.4); LARGE UNSTAINED CELL % 1.3 % (0.0-4.0); LYMPH # 1.5 K/mm3 (1.5-4.5); LYMPH % 18.3 % (24.0-44.0); MEAN CORPUSCULAR HEMOGLOBIN 30.6 pg (27.0-33.0); MEAN CORPUSCULAR HGB CONC 32.6 g/dl (32.0-36.5); MONO # 0.5 K/mm3 (0.0-0.8); MONO % 6.4 % (0.0-5.0); NEUTROPHILS # 5.6 K/mm3 (1.8-7.7); NEUTROPHILS % 70.6 % (36.0-66.0); PLATELET COUNT, AUTOMATED 252 k/mm3 (150-450); RED CELL DISTRIBUTION WIDTH 12.9 % (11.5-14.5); WHITE BLOOD COUNT 7.9 K/mm3 (4.0-10.0)
[2016-08-17 05:57] LABS: ALBUMIN 3.1 GM/DL (3.2-5.2); ALBUMIN/GLOBULIN RATIO 0.97 (1.00-1.93); BILIRUBIN,TOTAL 1.3 MG/DL (0.2-1.0); CALCIUM LEVEL 13.2 MG/DL (8.8-10.2); CREATININE FOR GFR 1.49 MG/DL (0.55-1.02); GLOMERULAR FILTRATION RATE 35.2 (>32); MAGNESIUM LEVEL 2.4 MG/DL (1.8-2.4); POTASSIUM SERUM 3.6 MEQ/L (3.5-5.1); TOTAL PROTEIN 6.3 GM/DL (6.4-8.2)
[2016-08-17] MEDS: KCL 20MEQ in NS 1000ML 1,000 ML IV SCH ×2 (07:40→15:00)
[2016-08-17 08:00] VITALS: BP 133/66
[2016-08-17] MEDS: CALCITONIN SALMON (MIACALCIN) 400INTERNATIONAL UNITS/2ML INJ (J0630) SQ SCH ×2 (09:00→20:14)
--- NOTE | 2016-08-17 09:10 | REP ---
Renal ultrasound for acute renal failure and hypercalcemia: The kidneys are normal size. Right kidney measures 10.4 4.6 x 4 point centimeters. Left kidney measures 10.7 x 3.8 by 5.5 cm. There is no hydronephrosis on the right on the left. There are no renal calculi. There are no renal masses. There are two right renal cysts, one at the upper pole measuring 1 cm and one at the lower pole measuring 1.5 cm. There are are two left renal cyst on the upper pole measuring 1.6 cm in left mid pole measuring 0.7 cm. Bladder ultrasound: There is a Lim catheter in the bladder, the bladder is collapsed and cannot be evaluated. Impression: no hydronephrosis. Bilateral renal cysts as described. No renal calculi or hydronephrosis. Signed by Laron Cortez MD 08/17/2016 09:01 A
--- NOTE | 2016-08-17 10:05 | CR ---
DATE OF CONSULTATION: 08/16/2016 CONSULTATION REPORT FOR: Cheng Li D.O. REASON FOR CONSULTATION: Hypercalcemia. HISTORY OF PRESENT ILLNESS: Ms. Grant is an 86-year-old female who is a care home resident and was admitted to [facility] on 08/15/2016 due to altered mentation. She was found to have hypercalcemia with total calcium of 14.8. Her initial workup included an intact parathyroid hormone (PTH) level of 609. She is being hydrated with IV fluid. She is also noticed to have stage III of chronic kidney disease with creatinine 1.43 mg/dL. A nephrology consultation was requested and the patient was seen in the evening of 08/16/2016. PAST MEDICAL AND SURGICAL HISTORY: Significant for: 1. History of hypothyroidism. 2. Hypertension. 3. Osteoarthritis. 4. History of dementia. 5. History of frequent falls prior to care home admission. PAST SURGICAL HISTORY: Significant for: 1. Appendectomy. 2. Total hysterectomy. 3. Teeth extractions. FAMILY HISTORY: Negative for any kidney or parathyroid problems. PERSONAL AND SOCIAL HISTORY: The patient is currently a care home resident. She does not smoke or drink. REVIEW OF SYSTEMS: The patient is somewhat confused but able to answer simple questions. She denies any vomiting but has poor appetite. She has no fever or chills. Head and neck is significant for a prior history of cyst on her cervical (C) spine. She denies any headache. Ears, nose and throat are unremarkable. Cardiovascular system is negative for dyspnea, chest pain, or palpitations. Respiratory system is negative for cough or hemoptysis. Gastrointestinal (GI) system is significant for poor appetite. She denies any vomiting, diarrhea, or abdominal pain. Genitourinary () system is negative for dysuria or hematuria. Endocrine system is significant for hypothyroidism and secondary hyperparathyroidism. She has been on calcitriol and Sensipar prior to admission. There is no history of diabetes. Neurological system is significant for dementia. She also has a history of unsteady gait and falls. She denies any seizures. Skin is negative for rash or ulcers. Musculoskeletal system is significant for osteoarthritis. There is no history of recent fractures. MEDICATIONS: Prior to admission, her medications included: - aspirin 81 mg daily - PreserVision multivitamin capsules one twice a day - calcitriol 0.25 mcg daily - Sensipar 30 mg daily - levothyroxine 88 mcg daily - lisinopril 10 mg daily - mirtazapine 7.5 mg at bedtime - multivitamin one tablet daily - Lyrica 50 mg three times a day - vitamin D 2000 units daily Her as-needed medications included: Tylenol, Dulcolax, milk of magnesia, and Fleet enema. ALLERGIES: There are reported allergies to SULFA, CODEINE, MORPHINE, IBUPROFEN, and MIPERIDINE. . PHYSICAL EXAMINATION: This is an elderly lady laying in the bed without any acute distress. Temperature 98 degrees Fahrenheit, heart rate 70 per minute and respiratory rate 18 per minute. Blood pressure 143/70 mmHg and oxygen saturation 94%. Head is atraumatic. Oral mucosa is dry. Ears, nose and throat are unremarkable. Neck is supple and without jugular venous distention (JVD) or thyroid enlargement. There are no abnormal cervical lymph nodes. Heart sounds reveal a regular S1, S2. There is a systolic murmur grade 1/6. Lungs are clear to auscultation bilaterally. Abdomen is soft and nontender and without a palpable organomegaly. Extremities have no cyanosis or clubbing. Skin has no rash or ulcers. Neurologically, she is awake and able to answer simple questions. She is not very well oriented to time. LABORATORY DATA: On admission, her sodium was 137 and potassium 4.1. BUN 25 and creatinine 1.18. Calcium level 14.8 and intact PTH level 609.9. 25-hydroxyvitamin D level was 37.5. A repeat calcium on the day of this consultation is still 14.8 while BUN is 29 and creatinine 1.38. Phosphorus 2.6 and magnesium 1.3. Looking back, her calcium level has been high even in 2012 and then it was within normal range in 2014 and 2015. In early 2016, her calcium level started to increase and has been gradually increasing. Her PTH level was 240 on 08/03/2016 , 371 on 08/07/2016, 389 on 08/08/2016, and 609.9 on 08/15/2016. She already had parathyroid nuclear medicine scan which did not show any compelling evidence of parathyroid adenoma. Chest x-ray showed chronic interstitial fibrosis and cardiomegaly. PROBLEMS: 1. Hypercalcemia. Most likely, she has abnormal production of intact parathyroid hormone (PTH) even though her parathyroid nuclear scan has been reported negative for parathyroid adenoma. She did not have significant evidence for primary or secondary hyperparathyroidism until earlier this year. Continued increase in her intact PTH level over the last several weeks is suggestive of abnormal production. Her kidney disease is only stage III and she is unlikely to have a tertiary hyperparathyroidism. While we are treating her hypercalcemia with IV fluids and medications, we will continue diagnostic workup for abnormal production of parathyroid hormone. A parathyroid ultrasound will be ordered as she is likely to have either parathyroid carcinoma or adenoma. I will change her IV fluids to normal saline and add potassium chloride due to poor oral intake and borderline hypokalemia. 2. Chronic kidney disease. The patient has stage III of chronic kidney disease. She does not have any proteinuria or hematuria. She is being hydrated with IV fluids. I will get a renal ultrasound for initial noninvasive evaluation of her kidneys. 3. Hypertension. Blood pressure seems to be reasonably well-controlled on current antihypertensives. Probably angiotensin-converting enzyme (KARINA) inhibitor is not the best medication for her. However, at present, we will continue while she is being hydrated. In the long-term, we will consider switching her to calcium channel marcio in view of her advanced age and risk of acute renal failure with dehydration, etc. I thank you for involving me in the care of Mrs. Grant. I will follow her along with you. VICKY
[2016-08-17] MEDS: ASPIRIN 81 MG CHEW TABLET PO SCH (10:06)
[2016-08-17] MEDS: MULTIVITAMINS/MINERALS THERAP 1 TAB PO SCH (10:07)
[2016-08-17] MEDS: CINACALCET 30 MG TAB (SENSIPAR) PO SCH ×2 (10:07→20:11)
[2016-08-17] MEDS: PREGABALIN 50 MG CAP (LYRICA) PO SCH ×3 (10:07→20:11)
[2016-08-17] MEDS: LISINOPRIL 10 MG TAB PO SCH (10:07)
[2016-08-17] MEDS: FUROSEMIDE 40 MG/4 ML VIAL (J1940) IV SCH (10:08)
[2016-08-17] MEDS: LEVOTHYROXINE 0.088 MG TAB (88 MCG) PO SCH (10:08)
[2016-08-17] MEDS: NYSTATIN 100,000 UNITS/GM TOPICAL PWD 15 GM TOP SCH ×2 (10:09→20:11)
[2016-08-17 11:56] VITALS: BP 113/61
--- NOTE | 2016-08-17 13:55 | IPN ---
DATE: 08/17/2016 Ms. Grant is an 86-year-old female resident of [facility] who had originally been placed there for subacute rehabilitation with the plan to advance her to assisted-living. As dictated previously, she was admitted for hypercalcemia, change of mentation, and suspected primary hyperparathyroidism which I have asked Dr. Bullard to help assist with fluid management. Unable to get a meaningful history from her at bedside. She does appear to be somewhat confused but she does attempt to follow some commands and she is able to feed herself. She just recently returned from having a renal ultrasound done this morning as well. OBJECTIVE: Temperature is 97.5, pulse 56, respiratory 16, blood pressure 113/61, SPO2 is 96% on room air. GENERAL: The patient appears to be in no acute distress. HEENT: Unremarkable. LUNGS: Clear. HEART: Regular rate and rhythm. ABDOMEN: Soft. EXTREMITIES: No edema. No calf tenderness. LABORATORY DATA: White count 7.9, hemoglobin 11, platelets are 252,000. Sodium 142, potassium 3.6, chloride 109, bicarbonate 27, anion gap 6, BUN 32, creatinine 1.49, glucose 92, serum calcium is 13.2 which is improved from yesterday, total bilirubin 1.3, magnesium 2.4, AST 18, ALT 17, alkaline phosphatase 70, albumin is 3.1, intact PTH is 893 this morning. One 25-dihydroxy vitamin D is pending. PTH-related protein is pending. Urine for calcium is pending. Blood cultures are negative times two. Urine culture is unremarkable. Her renal ultrasound showed no hydronephrosis. Bilateral renal cysts were described, but no renal calculi or hydronephrosis appreciated. ASSESSMENT AND PLAN: 1. Hypercalcemia with suspected primary hyperparathyroidism. We will continue with IV fluids, Lasix and appreciate Dr. Bullard's assistance with managing this aspect of her medical management. 2. Metabolic encephalopathy, superimposed on dementia, likely made worse by the fact of her hypercalcemia. 3. Leukocytosis, likely reactive and resolved. 4. Hypomagnesemia, resolved. We will continue to watch her electrolytes. 5. Hypothyroidism, on levothyroxine. 6. Chronic kidney disease (CKD), stage III with elevated creatinine. Appreciate Dr. Bullard's input. 7. Hypertension, stable. 8. She had a brief episode of a two-second pause on telemetry. We will continue to follow and follow her oxygen levels. No underlying history of obstructive sleep apnea. We did review her medications. No apparent causes for the time being but assume that it is likely secondary to her electrolyte abnormality. We will see how this resolves over the next 24 hours with further correction of her calcium. 9. Constipation with vague abdominal symptoms, likely related to hypercalcemia. 10. Unsteady gait, physical therapy likely await until she is able to actively engage. 11. Deep vein thrombosis (DVT) prophylaxis. Thromboembolic-deterrent stockings (TEDS) and sequential compression devices (SCDs). DISPOSITION: She is currently a full code. I will reach out to her healthcare proxy, Glory Bartholmoew, today to update her on the patient's status.
[2016-08-17 15:50] VITALS: BP 136/62
--- NOTE | 2016-08-17 15:54 | ECGEPIP ---
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
--- NOTE | 2016-08-17 18:03 | IPN ---
DATE: 08/17/2016 Mrs. Grant is seen this morning at bedside. She remains very confused and disoriented. She keeps repeating same question again and again. She is significantly hard of hearing and I am not sure if she understands the answers. She has no nausea or vomiting. She looks comfortable and there is no dyspnea. On physical examination, temperature 97.7 degrees Fahrenheit, blood pressure 130/62. Intake and output records from yesterday showed total intake 1070 and output 2500. Head is atraumatic. Ears, nose and throat are unremarkable. Neck is supple and without jugular venous distention (JVD) or thyroid enlargement. Heart sounds are regular. Lungs clear to auscultation. Abdomen is soft and nontender. Bowel sounds normal. Extremities have no cyanosis or clubbing. Skin has no rash or ulcers. Neurologically she is confused and disoriented. She is able and answered to some questions. Today's laboratories show WBC count 7.9, hemoglobin 11.3 and October 33.8. Sodium 142 and potassium 3.6. BUN 13 and creatinine 1.49. Calcium <<1:17>> PROBLEMS: 1. Severe hypercalcemia. Etiology is uncertain but it is most likely related to primary hyperparathyroidism. On review of her old records, it is noticed that her parathyroid level has been gradually increasing despite very high level of calcium. Her nuclear parathyroid scan was reported negative; however, her clinical condition is most consistent with primary hyperparathyroidism. At present, she should not be treated with calcitriol and does not seem to be responding to Sensipar. Will try to increase the dose of Sensipar and continue with IV normal saline. We will also get an ultrasound of parathyroid glands for further evaluation. She is not a very suitable candidate for parathyroid surgery due to advanced age and dementia; however, once her condition improves, then we can discuss this option further. 2. Acute kidney injury superimposed on chronic kidney disease. Most likely this is related to hypercalcemia. We will get a renal ultrasound and continue with IV fluid hydration. 3. Hypokalemia. This is related to poor oral intake and IV fluids. We will add 20 mEq potassium chloride in each liter of IV fluids. 4. Primary hyperparathyroidism. Her intact parathyroid (PTH) level is being repeated again today. We will continue with Sensipar and try to get an ultrasound of parathyroid gland.
[2016-08-17 19:35] LABS: CALCIUM, URINE 14.8 MG/DL
[2016-08-17 20:00] VITALS: BP 141/65
[2016-08-18] VITALS (7 sets, daily range): BP systolic 120–147; BP diastolic 60–78
[2016-08-18] MEDS: KCL 20MEQ in NS 1000ML 1,000 ML IV SCH ×3 (00:23→22:47)
[2016-08-18 05:46] LABS: BASO % 0.6 % (0.0-1.0); EOS # 0.3 K/mm3 (0.0-0.50); EOS % 4.2 % (0.0-3.0); LARGE UNSTAINED CELL # 0.1 K/mm3 (0.0-0.4); LARGE UNSTAINED CELL % 1.6 % (0.0-4.0); LYMPH # 1.5 K/mm3 (1.5-4.5); LYMPH % 19.5 % (24.0-44.0); MEAN CORPUSCULAR HEMOGLOBIN 31.8 pg (27.0-33.0); MEAN CORPUSCULAR HGB CONC 33.4 g/dl (32.0-36.5); MEAN CORPUSCULAR VOLUME 95.4 fl (80.0-96.0); MONO # 0.5 K/mm3 (0.0-0.8); MONO % 6.4 % (0.0-5.0); NEUTROPHILS # 5.1 K/mm3 (1.8-7.7); NEUTROPHILS % 67.7 % (36.0-66.0); PLATELET COUNT, AUTOMATED 257 k/mm3 (150-450); WHITE BLOOD COUNT 7.6 K/mm3 (4.0-10.0)
[2016-08-18 06:11] LABS: ALBUMIN/GLOBULIN RATIO 0.86 (1.00-1.93); BILIRUBIN,TOTAL 1.3 MG/DL (0.2-1.0); CALCIUM LEVEL 12.4 MG/DL (8.8-10.2); CREATININE FOR GFR 1.43 MG/DL (0.55-1.02); GLOMERULAR FILTRATION RATE 36.9 (>32); MAGNESIUM LEVEL 1.6 MG/DL (1.8-2.4); POTASSIUM SERUM 3.8 MEQ/L (3.5-5.1); TOTAL PROTEIN 6.5 GM/DL (6.4-8.2)
--- NOTE | 2016-08-18 07:17 | REP ---
ULTRASOUND OF THE NECK: Ultrasound of the neck is performed. In the region of the thyroid bed, the thyroid gland could not be visualized. I see no normal thyroid tissue. The study is limited due to body habitus. There is no evidence of a gross soft tissue mass in this region. Signed by Laron Watts MD 08/18/2016 04:34 P
[2016-08-18] MEDS: MULTIVITAMINS/MINERALS THERAP 1 TAB PO SCH (09:43)
[2016-08-18] MEDS: LEVOTHYROXINE 0.088 MG TAB (88 MCG) PO SCH (09:43)
[2016-08-18] MEDS: ASPIRIN 81 MG CHEW TABLET PO SCH (09:43)
[2016-08-18] MEDS: LISINOPRIL 10 MG TAB PO SCH (09:43)
[2016-08-18] MEDS: FUROSEMIDE 40 MG/4 ML VIAL (J1940) IV SCH (09:44)
[2016-08-18] MEDS: PREGABALIN 50 MG CAP (LYRICA) PO SCH ×3 (09:44→20:56)
[2016-08-18] MEDS: NYSTATIN 100,000 UNITS/GM TOPICAL PWD 15 GM TOP SCH ×2 (09:44→22:48)
[2016-08-18] MEDS: CINACALCET 30 MG TAB (SENSIPAR) PO SCH ×2 (09:44→20:56)
[2016-08-18] MEDS: CALCITONIN SALMON (MIACALCIN) 400INTERNATIONAL UNITS/2ML INJ (J0630) SQ SCH ×2 (12:57→20:57)
--- NOTE | 2016-08-18 14:54 | IPN ---
DATE: 08/18/2016 68-year-old female seen at bedside. No overnight issues reported. She does continue to be difficult to engage verbally. Her daughter is present at bedside, who is also the healthcare proxy. OBJECTIVE: Temperature 97.5, pulse 76, respiratory rate 18, blood pressure 120/60, SpO2 is 95% on room air. GENERAL: The patient appears to be in no acute distress. Is alert and oriented. HEENT: Head is atraumatic, normocephalic. Eyes: Pupils equal, round, reactive to light and accommodation. Throat clear. LUNGS: Clear. HEART: Regular rate and rhythm. ABDOMEN: Soft. EXTREMITIES: Trace edema at the ankles. LABORATORY DATA: White count 7.6, hemoglobin 11.5, platelets 257. Sodium 142, potassium 3.8, chloride 109, bicarbonate 25, anion gap 8, BUN 30, creatinine 1.43, glucose 71, magnesium 1.6, which we will supplement, total bilirubin 1.3, AST 15, ALT 18, alkaline phosphatase 73, albumin 3.0, intact PTH is 893, 125 hydroxy vitamin D is pending. 24-hour urine collection for calcium is 377.4. Urine culture is negative. Blood culture is negative times two. Thyroid ultrasound study limited due to body habitus. No evidence of gross soft tissue mass and the thyroid gland could not be visualized again due to body habitus. Renal ultrasound was unremarkable. Parathyroid nuclear scan was negative. ASSESSMENT AND PLAN: 1. Hypercalcemia. Suspects suspicion of primary hyperparathyroidism. Continue with IV fluids, Lasix and Sensipar. She received Miacalcin and appreciate Dr. Bullard's assistance with fluid management. 2. Metabolic encephalopathy superimposed on dementia, likely made worse by her hypercalcemia. We will continue to follow. 3. Leukocytosis, likely reactive, resolved. 4. Hypomagnesemia. We will replete. 5. Hypothyroidism. Continue Synthroid. 6. Chronic kidney disease, stage III. Elevated creatinine. Appreciate Dr. Bullard's input. 7. Hypertension, stable. 8. Constipation, likely related to current medications. 9. Unsteady gait. Physical therapy will likely be in engaged when she is more active. 10. Nonsustained ventricular tachycardia for three beats noted this morning, likely still related to electrolyte abnormalities. We will continue on telemetry another 24 hours. 11. Deep vein thrombosis (DVT) prophylaxis with TEDs and sequential compression device (SCD). Glory Bartholomew, regarding treatment options. Additionally, had a discussion with Dr. Bullard and ENT regarding treatment options. This does appear to be a primary hyperparathyroidism, likely related to underlying parathyroid adenoma; however, it was unable to have been identified on nuclear scan of the parathyroid. I did discuss with her daughter that the course of action for treatment at this point would be consideration for surgery. She wants to discuss this further with her family. She is unsure if she would want to put her mother through this. They will discuss and we will have followup to their discussion tomorrow to see if they would like to proceed versus making patient comfort measures. The patient's daughter, who is the healthcare proxy, does inform me that she does not believe that her mother would want to be resuscitated should anything happen. We will hold off on updating a Medical Orders for Life Sustaining Treatment (MOLST) form until after tomorrow's discussion.
[2016-08-18] MEDS: MAG SULF 1GM/100ML (MAG RUN) 1 GM in APPROPRIATE DILUENT 1 EA IV SCH ×2 (16:00→16:31)
--- NOTE | 2016-08-18 20:09 | IPN ---
DATE: 08/18/2016 SUBJECTIVE: Mrs. Grant is seen this morning on her bedside. She is still sleeping and I woke her up. She states that it is too early for her to wake up. She denies any nausea or vomiting. However, her oral intake has been poor. She has no dyspnea, chest pain, fever or chills. She has been on intravenous (IV) fluid due to severe hypercalcemia. PHYSICAL EXAMINATION: VITAL SIGNS: Temperature 97.9 degrees Fahrenheit, heart rate 78 per minute and respiratory rate 18 per minute. Blood pressure 122/78 mmHg and oxygen saturation 95% on room air. HEENT: Head is atraumatic. Pupils are equal and reactive to light and sclerae are anicteric. Ears, nose and throat are unremarkable. NECK: Neck is supple and without jugular venous distention (JVD) or thyroid enlargement. CARDIAC: Heart sounds are regular. LUNGS: With moderate bilateral air entry. ABDOMEN: Soft, obese and nontender. There is no palpable organomegaly. EXTREMITIES: Have no cyanosis or clubbing. NEUROLOGIC: She is awake and answers questions appropriately. LABORATORY DATA: Today's labs show WBC count 7.6, hemoglobin 11.5 and hematocrit 34.5. Platelets 257. Sodium 142 and potassium 3.8. Her calcium level is down to 12.4, BUN 30 and creatinine 1.43. Magnesium 1.6 and bilirubin 1.3. Yesterday a repeat intact PTH level was 893.4. IMAGING: Ultrasound of her thyroid gland was done which did not show any evidence of parathyroid tumors. Renal ultrasound has also been done which showed 10.4 and 10.7 cm kidneys without any hydronephrosis. PROBLEMS: 1. Severe hypercalcemia. This is mostly related to primary hyperparathyroidism. The patient is being hydrated with IV normal saline and she is also receiving calcitonin. Her calcium level is improving nicely. We will continue with current management until her calcium level is corrected. For long-term cure, she is going to need a parathyroidectomy. I have discussed with Dr. Li who is in turn talking to the patient's family. I feel that there is no other choice at this point other than doing a parathyroidectomy as she is not responding to any medical care. 2. Acute on chronic renal failure. Kidney function is slightly improved. We will continue with IV fluid hydration. 3. Hypomagnesemia. Her magnesium level is slightly low; mostly this is related to poor oral intake and IV fluids given. I suggest to replace her magnesium with IV magnesium sulfate. 4. Hypokalemia. Potassium level has improved compared with yesterday. We will continue with potassium chloride in IV fluid. 5. Hypertension. Blood pressure is very well controlled on current antihypertensives which should be continued.
[2016-08-18] MEDS ORDERED: MAG SULF 1GM/100ML (MAG RUN) 1 GM in APPROPRIATE DILUENT 1 EA IV SCH (22:37)
[2016-08-19 04:33] VITALS: BP 121/58
[2016-08-19 05:31] LABS: BASO % 0.6 % (0.0-1.0); EOS # 0.4 K/mm3 (0.0-0.50); EOS % 4.9 % (0.0-3.0); LARGE UNSTAINED CELL # 0.2 K/mm3 (0.0-0.4); LARGE UNSTAINED CELL % 2.2 % (0.0-4.0); LYMPH # 1.4 K/mm3 (1.5-4.5); LYMPH % 18.3 % (24.0-44.0); MEAN CORPUSCULAR HEMOGLOBIN 31.5 pg (27.0-33.0); MEAN CORPUSCULAR HGB CONC 33.2 g/dl (32.0-36.5); MEAN CORPUSCULAR VOLUME 94.9 fl (80.0-96.0); MONO # 0.5 K/mm3 (0.0-0.8); MONO % 6.7 % (0.0-5.0); NEUTROPHILS # 5.3 K/mm3 (1.8-7.7); NEUTROPHILS % 67.3 % (36.0-66.0); PLATELET COUNT, AUTOMATED 258 k/mm3 (150-450); WHITE BLOOD COUNT 7.9 K/mm3 (4.0-10.0)
[2016-08-19 05:42] LABS: ALBUMIN 3.1 GM/DL (3.2-5.2); ALBUMIN/GLOBULIN RATIO 0.94 (1.00-1.93); BILIRUBIN,TOTAL 1.2 MG/DL (0.2-1.0); CALCIUM LEVEL 12.2 MG/DL (8.8-10.2); CREATININE FOR GFR 1.36 MG/DL (0.55-1.02); GLOMERULAR FILTRATION RATE 39.1 (>32); POTASSIUM SERUM 3.9 MEQ/L (3.5-5.1); TOTAL PROTEIN 6.4 GM/DL (6.4-8.2)
[2016-08-19 08:00] VITALS: BP 135/63
[2016-08-19] MEDS: FUROSEMIDE 40 MG/4 ML VIAL (J1940) IV SCH (09:00)
[2016-08-19] MEDS: CALCITONIN SALMON (MIACALCIN) 400INTERNATIONAL UNITS/2ML INJ (J0630) SQ SCH ×2 (09:00→22:38)
[2016-08-19] MEDS: PREGABALIN 50 MG CAP (LYRICA) PO SCH ×3 (09:48→22:38)
[2016-08-19] MEDS: MULTIVITAMINS/MINERALS THERAP 1 TAB PO SCH (09:48)
[2016-08-19] MEDS: LISINOPRIL 10 MG TAB PO SCH (09:48)
[2016-08-19] MEDS: ASPIRIN 81 MG CHEW TABLET PO SCH (09:48)
[2016-08-19] MEDS: CINACALCET 30 MG TAB (SENSIPAR) PO SCH ×2 (09:48→22:38)
[2016-08-19] MEDS: LEVOTHYROXINE 0.088 MG TAB (88 MCG) PO SCH (09:48)
[2016-08-19] MEDS: KCL 20MEQ in NS 1000ML 1,000 ML IV SCH ×2 (09:49→16:57)
[2016-08-19] MEDS: NYSTATIN 100,000 UNITS/GM TOPICAL PWD 15 GM TOP SCH ×2 (09:50→22:39)
[2016-08-19 12:00] VITALS: BP 117/77
[2016-08-19] MEDS ORDERED: ZOLEDRONIC ACID 4 MG in D5W 100 ML IV ONE (12:00)
--- NOTE | 2016-08-19 15:07 | IPN ---
DATE: 08/19/2016 86-year-old female seen at bedside. She still continues to be somewhat lethargic. She does respond some to spoken voice today, but is not following commands very well, which has been her status quo for the last few days. OBJECTIVE: Temperature 98.1, pulse 75, respiratory rate is 18, blood pressure (BP) 121/58, SPO2 is 97%. No acute distress. She is lethargic, confused. HEENT: Unremarkable. Lungs: Clear. Heart: Regular rate and rhythm. Abdomen: Soft, obese, nontender. Extremities: No edema. No calf tenderness. LABORATORY DATA: White count 7.9, hemoglobin 11.6, platelets 258. Sodium 141, potassium 3.9, chloride 110, bicarb 25, anion gap 6, BUN 33, creatinine 1.36, glucose 107. Serum calcium today is 12.2 down from 12.4. Total bilirubin is 1.2. Magnesium 2.0. AST 13, ALT 16, alkaline phosphatase 72 and albumin is 3.1. ASSESSMENT/PLAN: 1. Hypercalcemia secondary to primary hyperparathyroidism. Continue with IV fluids, Lasix, Sensipar, Miacalcin. Appreciate Dr. Bullard's assistance with fluid management. I have discussed this case with ENT as well regarding the viability of a parathyroidectomy. The patient's healthcare proxy Glory was present at bedside yesterday. We did discuss the treatment options at this point since we feel that we have more or less maximized her medical treatment. Her calcium did slightly improve from yesterday and I would have liked to have seen her less lethargic and more awake today. At any rate, I will need to discuss this further with the family regarding their goals of treatment when they are in today. I did have an end-of-life discussion and advance directives discussion with the patient's daughter who is the healthcare proxy yesterday and she was to discuss further with their family members. 2. Metabolic encephalopathy superimposed on dementia, made likely worse by the severe hypercalcemia. Will discuss further with family again today. 3. Leukocytosis, likely reactive and resolved. 4. Hypomagnesemia, resolved. 6. Hypothyroidism, continue Synthroid. 7. Chronic kidney disease stage III, elevated creatinine. Appreciate Dr. Bullard's input. 8. Hypertension, stable. Will continue to monitor blood pressure. 9. Constipation, likely is related to the hypercalcemia. 10. Unsteady gait, with physical therapy to be engaged should she become more active. 11. Nonsustained ventricular tachycardia yesterday. No further events. Will continue to try to follow her electrolytes to make sure these are adjusted properly. 12. Deep vein thrombosis (DVT) prophylaxis, thromboembolic deterrent stockings (TEDS) and sequentials. DISPOSITION: The patient currently has a poor prognosis due to the hypercalcemia as well as the confusion and lethargy. Again, will follow up with the family today regarding what their wishes are and how we should proceed.
--- NOTE | 2016-08-19 15:11 | IPN ---
DATE: 08/19/2016 The patient was seen and examined at the bedside today in the morning. The patient was sleeping, but easily arousable. She follows commands. She is very hard of hearing. She is otherwise hemodynamically stable. REVIEW OF SYSTEMS: I was unable to do any reliable review of systems in this patient who is really very hard of hearing and she was not wearing her hearing aid at this time, but clinically the patient looks like she is asymptomatic. OBJECTIVE: VITAL SIGNS: Temperature is 97.8 degrees Fahrenheit. Blood pressure 117/77. Pulse 77. Respiratory rate 20. Saturating 93% on room air. INTAKE AND OUTPUT: Urine output recorded as 3 liters yesterday and 800 mL so far today since overnight. Weight on the bed scale is 73 kg. PHYSICAL EXAMINATION: GENERAL: The patient is awake, alert, laying in the bed, in no apparent distress. HEAD AND NECK EXAM: Extraocular muscles intact. Mucosal membranes are moist. Neck is supple. There is no jugular venous distention (JVD). CARDIOVASCULAR: S1, S2, regular rate. No murmur, rub or gallop. RESPIRATORY: Chest is clear to auscultation bilaterally. Bilateral equal air entry. No rales or rhonchi. ABDOMEN: Soft. Obese. Positive bowel sounds. Nontender. No ascites. No organomegaly. EXTREMITIES: No clubbing or cyanosis. Pulses are 2+. CENTRAL NERVOUS SYSTEM: The patient is awake and alert. Follows commands. SKIN: No rashes or ulcers. LAB REVIEW: CBC showed a WBC of 7.9, hemoglobin 11.6, and platelets 258. BMP shows sodium 141, potassium 3.9, chloride 110, bicarbonate 25, BUN 33, creatinine 1.36 and it was 1.43 yesterday, calcium 12.2, total bilirubin 1.2, albumin 3.1. CURRENT MEDICATIONS: Patient's medications are all reviewed by me. She continues to be on IV fluid at 100 mL/hr. I have ordered a dose of zoledronic acid 4 mg IV times one dose. She continues to be on IV calcitonin 300 international units every 12 hours. I have changed her Sensipar dose to 60 mg by mouth twice a day. I have decreased her IV Lasix to 20 mg IV daily. There is no other change in the medications today as compared with yesterday. ASSESSMENT: 86-year-old female with severe hypercalcemia and primary hyperparathyroidism along with acute kidney injury. PLAN: 1. Primary hyperparathyroidism. The patient is being evaluated by ENT for surgery, but as per my discussion with the primary medical team, the family is not inclined towards surgery in this patient who is [id number]. They want medical management at this time. I have increased the Sensipar dose to 60 mg by mouth twice a day. I will repeat another PTH level by Sunday. 2. Severe hypercalcemia. The patient continues to be on IV fluids; however, she is in negative fluid balance. I have decreased the Lasix dose to 20 mg IV daily. Continue calcitonin. I have ordered a dose of zoledronic acid 4 mg IV times one dose. 3. Acute kidney injury. It was most likely secondary to hypercalcemia and dehydration. Continue IV fluid hydration and creatinine is slowly improving with improvement in the calcium level as well. 4. Hypomagnesemia. Magnesium level is improved to 2 today. Continue to monitor daily magnesium level. She was given IV magnesium yesterday. 5. Hypokalemia. Potassium is stable at this time. Continue the KCl 20 mEq in IV fluids. 6. Hypertension. Blood pressure is optimized at this time. Continue current dose of lisinopril 10 mg by mouth daily. The plan of care was discussed with the hospitalist team, Dr. Cheng Li.
[2016-08-19 16:00] VITALS: BP 129/66
[2016-08-19 20:27] VITALS: BP 129/67
[2016-08-20 01:04] VITALS: BP 145/66
[2016-08-20] MEDS: KCL 20MEQ in NS 1000ML 1,000 ML IV SCH ×3 (01:30→15:55)
[2016-08-20 04:58] VITALS: BP 126/61
[2016-08-20 05:31] LABS: BASO % 0.6 % (0.0-1.0); EOS # 0.5 K/mm3 (0.0-0.50); EOS % 5.9 % (0.0-3.0); LARGE UNSTAINED CELL # 0.1 K/mm3 (0.0-0.4); LARGE UNSTAINED CELL % 1.4 % (0.0-4.0); LYMPH % 11.7 % (24.0-44.0); MEAN CORPUSCULAR HEMOGLOBIN 30.5 pg (27.0-33.0); MEAN CORPUSCULAR HGB CONC 31.8 g/dl (32.0-36.5); MEAN CORPUSCULAR VOLUME 95.9 fl (80.0-96.0); MONO # 0.4 K/mm3 (0.0-0.8); MONO % 5.5 % (0.0-5.0); NEUTROPHILS # 5.9 K/mm3 (1.8-7.7); NEUTROPHILS % 74.9 % (36.0-66.0); PLATELET COUNT, AUTOMATED 244 k/mm3 (150-450); RED CELL DISTRIBUTION WIDTH 12.9 % (11.5-14.5); WHITE BLOOD COUNT 7.9 K/mm3 (4.0-10.0)
[2016-08-20 05:49] LABS: ALBUMIN 3.2 GM/DL (3.2-5.2); ALBUMIN/GLOBULIN RATIO 0.97 (1.00-1.93); BILIRUBIN,TOTAL 1.4 MG/DL (0.2-1.0); CALCIUM LEVEL 11.9 MG/DL (8.8-10.2); CREATININE FOR GFR 1.38 MG/DL (0.55-1.02); GLOMERULAR FILTRATION RATE 38.4 (>32); MAGNESIUM LEVEL 1.5 MG/DL (1.8-2.4); POTASSIUM SERUM 4.1 MEQ/L (3.5-5.1); TOTAL PROTEIN 6.5 GM/DL (6.4-8.2)
[2016-08-20] MEDS ORDERED: MAG SULF 1GM/100ML (MAG RUN) 1 GM in APPROPRIATE DILUENT 1 EA IV ONE (07:45)
[2016-08-20 08:00] VITALS: BP 142/65
[2016-08-20] MEDS: PREGABALIN 50 MG CAP (LYRICA) PO SCH ×3 (08:57→21:39)
[2016-08-20] MEDS: MULTIVITAMINS/MINERALS THERAP 1 TAB PO SCH (08:57)
[2016-08-20] MEDS: ASPIRIN 81 MG CHEW TABLET PO SCH (08:57)
[2016-08-20] MEDS: LISINOPRIL 10 MG TAB PO SCH (08:57)
[2016-08-20] MEDS: LEVOTHYROXINE 0.088 MG TAB (88 MCG) PO SCH (08:57)
[2016-08-20] MEDS: CINACALCET 30 MG TAB (SENSIPAR) PO SCH ×2 (08:57→21:39)
[2016-08-20] MEDS: NYSTATIN 100,000 UNITS/GM TOPICAL PWD 15 GM TOP SCH ×2 (08:58→21:40)
[2016-08-20] MEDS ORDERED: FUROSEMIDE 20 MG/2 ML VIAL (J1940) IV SCH (09:00)
[2016-08-20] MEDS: CALCITONIN SALMON (MIACALCIN) 400INTERNATIONAL UNITS/2ML INJ (J0630) SQ SCH ×2 (09:01→21:39)
[2016-08-20 12:00] VITALS: BP 142/71
[2016-08-20] MEDS ORDERED: SODIUM CHLORIDE 0.9% 1000 ML IV ONE (12:00)
--- NOTE | 2016-08-20 15:55 | IPNPDOC ---
Date Seen The patient was seen on 08/20/16. Progress Note Hospitalist Progress Note Subjective: Patient is very sleepy, but does awaken to verbal and tactile stimuli. She follows verbal directions. Objective: Physical Exam: Vitals: Vital Sign - Last 24 Hours 08/19/16 08/19/16 08/19/16 08/20/16 16:00 20:00 20:27 01:04 Temp 98.1 97.8 98.4 Pulse 69 54 62 Resp 20 18 18 B/P (MAP) 129/66 (87) 129/67 (87) 145/66 (92) Pulse Ox 96 93 94 O2 Delivery Room Air Room Air Room Air Room Air 08/20/16 08/20/16 08/20/16 08/20/16 04:58 08:00 08:50 08:57 Temp 98.4 99.0 Pulse 52 87 Resp 18 18 B/P (MAP) 126/61 (82) 142/65 (90) 142/65 Pulse Ox 94 94 O2 Delivery Room Air Room Air Room Air 08/20/16 08/20/16 12:00 12:00 Temp 98.5 Pulse 82 Resp 18 B/P (MAP) 142/71 (94) Pulse Ox 97 O2 Delivery Room Air Room Air General: Sleeping, but able to be awoken, no acute distress HEENT: Normocephalic, atraumatic, extraocular movements intact CV: Regular rate and rhythm Lungs: Clear to auscultation bilaterally Abd: Soft, nontender, nondistended Extremities: No edema Neuro: Fairly tired, but awakens to verbal and tactile stimuli, is able to tell me her full name as well as follow verbal directions, but she is otherwise not oriented Labs and Imaging: Laboratory Tests 08/20/16 05:14 Red Blood Count 3.78 L, Mean Corpuscular Volume 95.9, Mean Corpuscular Hemoglobin 30.5, Mean Corpuscular Hemoglobin Concent 31.8 L, Red Cell Distribution Width 12.9, Neutrophils (%) (Auto) 74.9 H, Lymphocytes (%) (Auto) 11.7 L, Monocytes (%) (Auto) 5.5 H, Eosinophils (%) (Auto) 5.9 H, Basophils (%) (Auto) 0.6, Neutrophils # (Auto) 5.9, Lymphocytes # (Auto) 1.0 L, Monocytes # ( Auto) 0.4, Eosinophils # (Auto) 0.5, Basophils # (Auto) 0.0, Calcium Level 11.9 H, Aspartate Amino Transf (AST/SGOT) 14 L, Alanine Aminotransferase (ALT/SGPT) 17, Alkaline Phosphatase 69, Total Bilirubin 1.4 H, Total Protein 6.5, Albumin 3.2 Assessment and Plan: 86-year-old female with dementia, chronic kidney disease stage III, hypothyroidism, hypertension who was transferred to the emergency department because she was noted to have an elevated calcium on her blood work. 1. Hypercalcemia secondary to primary hyperparathyroidism: Calcium upon admission was greater than 14. Nephrology is following along, and we greatly appreciate their input. At this time, we will continue IV fluids, calcitonin, Sensipar and Lasix. Calcium has improved to 11.9, she has evidently had some mild improvement in her mental status. Despite that this is secondary to a primary hyperparathyroidism. Family was not at the bedside today for me to speak with, but Dr. Li had had several discussions with them in the prior days, and they were to be discussing whether or not they would wish to pursue any surgical intervention. 2. Chronic kidney disease stage III: Baseline creatinine appears to be in the low ones. She is currently close to baseline at 1.38. Continue IV fluids. We appreciate the input of nephrology 3. Hypothyroidism: Continue home Synthroid. 4. Hypertension: Continue home KARINA inhibitor. 5. Metabolic encephalopathy superimposed on dementia: This is likely secondary to the hypercalcemia. It appears to shown some mild improvement since admission. 6. Nonsustained V. tach on Sunday: No further events. Continue to monitor electrolytes and monitor on telemetry. 7. Hypomagnesemia: Replacing DVT prophylaxis: SCDs Dispo: pending improvement in mental status and hypercalcemia VS, I&O, 24H, Fishbone Vital Signs/I&O Vital Signs Date Time Temp Pulse Resp B/P (MAP) Pulse Ox O2 Delivery O2 Flow Rate FiO2 08/20/16 12:00 Room Air 08/20/16 12:00 98.5 82 18 142/71 (94) 97 I&O- Last 24 Hours up to 6 AM 08/20/16 06:00 Intake Total 1440 ml Output Total 100 ml Balance 1340 ml Laboratory Data 24H LABS Laboratory Tests 2 08/20/16 05:14: White Blood Count 7.9, Red Blood Count 3.78L, Hemoglobin 11.6L, Hematocrit 36.3 , Mean Corpuscular Volume 95.9, Mean Corpuscular Hemoglobin 30.5, Mean Corpuscular Hemoglobin Concent 31.8L, Red Cell Distribution Width 12.9, Platelet Count 244, Neutrophils (%) (Auto) 74.9H, Lymphocytes (%) (Auto) 11.7L, Monocytes (%) (Auto) 5.5H, Eosinophils (%) (Auto) 5.9H, Basophils (%) (Auto) 0.6 , Neutrophils # (Auto) 5.9, Lymphocytes # (Auto) 1.0L, Monocytes # (Auto) 0.4, Eosinophils # (Auto) 0.5, Basophils # (Auto) 0.0, Large Unclassified Cells % 1.4 , Large Unclassified Cells # 0.1, Anion Gap 7L, Glomerular Filtration Rate 38.4 , Blood Urea Nitrogen 32H, Creatinine 1.38H, Sodium Level 142, Potassium Level 4.1, Chloride Level 111H, Carbon Dioxide Level 24, Calcium Level 11.9H, Aspartate Amino Transf (AST/SGOT) 14L, Alanine Aminotransferase (ALT/SGPT) 17, Alkaline Phosphatase 69, Total Bilirubin 1.4H, Total Protein 6.5, Albumin 3.2, Magnesium Level 1.5L, Albumin/Globulin Ratio 0.97L CBC/BMP Laboratory Tests 08/20/16 05:14 Red Blood Count 3.78 L, Mean Corpuscular Volume 95.9, Mean Corpuscular Hemoglobin 30.5, Mean Corpuscular Hemoglobin Concent 31.8 L, Red Cell Distribution Width 12.9, Neutrophils (%) (Auto) 74.9 H, Lymphocytes (%) (Auto) 11.7 L, Monocytes (%) (Auto) 5.5 H, Eosinophils (%) (Auto) 5.9 H, Basophils (%) (Auto) 0.6, Neutrophils # (Auto) 5.9, Lymphocytes # (Auto) 1.0 L, Monocytes # ( Auto) 0.4, Eosinophils # (Auto) 0.5, Basophils # (Auto) 0.0, Calcium Level 11.9 H, Aspartate Amino Transf (AST/SGOT) 14 L, Alanine Aminotransferase (ALT/SGPT) 17, Alkaline Phosphatase 69, Total Bilirubin 1.4 H, Total Protein 6.5, Albumin 3.2 Microbiology Microbiology 08/15/16 Blood Culture - Preliminary, Resulted No Growth after 72 hours. All specime... 08/15/16 Blood Culture - Preliminary, Resulted No Growth after 72 hours. All specime... 08/16/16 Urine Culture - Final, Complete GIAN SUGGS Aug 20, 2016 15:55
[2016-08-20 16:00] VITALS: BP 125/72
[2016-08-20 20:38] VITALS: BP 142/69
--- NOTE | 2016-08-20 23:28 | IPN ---
DATE: 08/20/2016 SUBJECTIVE: Patient was seen and examined at the bedside. She is awake, follows commands, she does not communicate very well. However, her calcium level is improving. She was given a dose of zoledronic acid yesterday. Her renal function is stable at this time. REVIEW OF SYSTEMS: Patient is unable to provide any reliable review of systems at this time. However, she is awake and alert and in no apparent distress. OBJECTIVE: VITAL SIGNS: Temperature 98.5 degrees Fahrenheit, blood pressure 142/71, pulse 82, respiratory rate 18, saturating at 97% on room air. Intake and output: Urine output is not recorded well. She had three incontinent voids yesterday, three incontinent voids so far today since overnight. Weight in the bed scale is 73 kg. PHYSICAL EXAMINATION: GENERAL: Patient is awake and alert, in no apparent distress. HEAD and NECK EXAM: Pupils are equally round and reactive to light. Mucous membranes are slightly dry. Neck is supple, there is no jugular venous distention (JVD). CARDIOVASCULAR: S1, S2, regular rate. No murmur, rub, or gallop. RESPIRATORY: Chest is clear to auscultation bilaterally. Bilateral equal air entry. No rales or rhonchi. ABDOMEN: Soft, obese, positive bowel sounds, nontender. No ascites. No organomegaly. EXTREMITIES: No clubbing or cyanosis. Pulses are 2+. CENTRAL NERVOUS SYSTEM (TAPE CALENDER): No focal deficits. She is awake and alert. She follows some commands but she does not communicate. SKIN: No rashes or ulcers but decreased skin turgor in bilateral upper extremities. LABORATORY REVIEW: CBC showed WBC 7.9, hemoglobin 11.6, platelets 244. BMP showed sodium 142, potassium 4.1, chloride 111, bicarbonate 24, BUN 32, creatinine 1.38, calcium 11.9, magnesium 1.5. CURRENT MEDICATIONS: Patient's current medications were all reviewed by me. She continues to be on IV normal saline at 100 mL/hour. Her Lasix dose was decreased to 20 mg IV daily yesterday. I also gave her a bolus of normal saline 250 mL IV times one dose. ASSESSMENT: 86-year-old female with severe hypercalcemia and primary hyperparathyroidism along with acute kidney injury. PLAN: 1. Primary hyperparathyroidism. Patient is elderly with multiple comorbidities. She is not a very good surgical candidate and family is also not ready to consent for the surgery. She would need medical management. I increased the Sensipar dose to 60 mg by mouth twice a day yesterday. A parathyroid hormone (PTH) level will be repeated tomorrow morning. 2. Severe hypercalcemia. Calcium level is improving. Continue IV Lasix but dose as decreased. Continue IV fluids at 100 mL/hour. Continue calcitonin. She also got a dose of zoledronic acid yesterday. When calcium level drops to below 11 then calcitonin will be stopped. 3. Acute kidney injury. It is secondary to dehydration and hypercalcemia. Patient still looks dry despite being on IV fluids. I already gave her a bolus of normal saline 250 mL. If needed, she will be given another bolus. 4. Hypomagnesemia. Magnesium is again low today. I ordered another dose of magnesium sulfate 1 gram IV today. 5. Hypertension. Blood pressure is acceptable at this time. Continue current dose of lisinopril.
[2016-08-21] VITALS (7 sets, daily range): BP systolic 102–167; BP diastolic 56–85
[2016-08-21 05:12] LABS: BASO % 0.5 % (0.0-1.0); EOS # 0.1 K/mm3 (0.0-0.50); EOS % 1.6 % (0.0-3.0); LARGE UNSTAINED CELL # 0.1 K/mm3 (0.0-0.4); LYMPH # 1.1 K/mm3 (1.5-4.5); LYMPH % 18.5 % (24.0-44.0); MEAN CORPUSCULAR HEMOGLOBIN 30.7 pg (27.0-33.0); MEAN CORPUSCULAR HGB CONC 32.7 g/dl (32.0-36.5); MEAN CORPUSCULAR VOLUME 93.9 fl (80.0-96.0); MONO # 0.5 K/mm3 (0.0-0.8); MONO % 8.6 % (0.0-5.0); NEUTROPHILS # 4.2 K/mm3 (1.8-7.7); NEUTROPHILS % 68.9 % (36.0-66.0); PLATELET COUNT, AUTOMATED 233 k/mm3 (150-450); RED CELL DISTRIBUTION WIDTH 12.9 % (11.5-14.5); WHITE BLOOD COUNT 6.1 K/mm3 (4.0-10.0)
[2016-08-21 05:29] LABS: CREATININE FOR GFR 1.48 MG/DL (0.55-1.02); GLOMERULAR FILTRATION RATE 35.4 (>32); MAGNESIUM LEVEL 1.6 MG/DL (1.8-2.4)
[2016-08-21] MEDS: MAG SULF 1GM/100ML (MAG RUN) 1 GM in APPROPRIATE DILUENT 1 EA IV SCH ×2 (09:08→10:39)
[2016-08-21] MEDS: CINACALCET 30 MG TAB (SENSIPAR) PO SCH ×2 (09:08→20:19)
[2016-08-21] MEDS: LEVOTHYROXINE 0.088 MG TAB (88 MCG) PO SCH (09:08)
[2016-08-21] MEDS: PREGABALIN 50 MG CAP (LYRICA) PO SCH ×3 (09:08→20:19)
[2016-08-21] MEDS: ASPIRIN 81 MG CHEW TABLET PO SCH (09:08)
[2016-08-21] MEDS: MULTIVITAMINS/MINERALS THERAP 1 TAB PO SCH (09:08)
[2016-08-21] MEDS: LISINOPRIL 10 MG TAB PO SCH (09:12)
[2016-08-21] MEDS: NYSTATIN 100,000 UNITS/GM TOPICAL PWD 15 GM TOP SCH ×2 (09:13→20:19)
[2016-08-21] MEDS: KCL 20MEQ in NS 1000ML 1,000 ML IV SCH (09:30)
[2016-08-21] MEDS ORDERED: ONDANSETRON 4 MG ORAL DISINTEGRATING TAB (S0181) PO PRN (11:45)
[2016-08-21] MEDS ORDERED: ONDANSETRON 4MG/2ML VIAL (J2405) IV PRN (11:45)
--- NOTE | 2016-08-21 13:45 | IPNPDOC ---
Date Seen The patient was seen on 08/21/16. Progress Note Hospitalist Progress Note Subjective: Patient awakens to my voice and answers questions; denies complaints Objective: Physical Exam: Vitals: Vital Sign - Last 24 Hours 08/20/16 08/20/16 08/20/16 08/21/16 16:00 20:00 20:38 00:07 Temp 99.1 99.4 100.7 Pulse 77 78 73 Resp 18 18 18 B/P (MAP) 125/72 (89) 142/69 (93) 124/62 (82) Pulse Ox 97 95 93 O2 Delivery Room Air Room Air Room Air Room Air 08/21/16 08/21/16 08/21/16 08/21/16 05:07 08:00 08:00 09:12 Temp 98.4 96.7 Pulse 55 80 Resp 18 18 B/P (MAP) 116/58 (77) 102/58 (73) 120/50 Pulse Ox 95 96 O2 Delivery Room Air Room Air Room Air 08/21/16 12:00 Temp 99.1 Pulse 120 Resp 18 B/P (MAP) 140/62 (88) Pulse Ox 98 O2 Delivery Room Air General: Sleeping, but awakens easily, no acute distress, hard of hearing HEENT: Normocephalic, atraumatic, extraocular movements intact CV: Regular rate and rhythm Lungs: Clear to auscultation bilaterally, no wheeze Abd: Soft, nontender, nondistended Extremities: No edema Neuro: Hard of hearing but awakens to my voice; oriented to self; answers questions, follows commands, asks for a drink of water Labs and Imaging: Laboratory Tests 08/21/16 04:53 Red Blood Count 3.56 L, Mean Corpuscular Volume 93.9, Mean Corpuscular Hemoglobin 30.7, Mean Corpuscular Hemoglobin Concent 32.7, Red Cell Distribution Width 12.9, Neutrophils (%) (Auto) 68.9 H, Lymphocytes (%) (Auto) 18.5 L, Monocytes (%) (Auto) 8.6 H, Eosinophils (%) (Auto) 1.6, Basophils (%) ( Auto) 0.5, Neutrophils # (Auto) 4.2, Lymphocytes # (Auto) 1.1 L, Monocytes # ( Auto) 0.5, Eosinophils # (Auto) 0.1, Basophils # (Auto) 0.0, Calcium Level 10.0 #, Aspartate Amino Transf (AST/SGOT) 19, Alanine Aminotransferase (ALT/SGPT) 22 , Alkaline Phosphatase 74, Total Bilirubin 1.0, Total Protein 6.0 L, Albumin 3.0 L Assessment and Plan: 86-year-old female with dementia, chronic kidney disease stage III, hypothyroidism, hypertension who was transferred to the emergency department because she was noted to have an elevated calcium on her blood work. 1. Hypercalcemia secondary to primary hyperparathyroidism: Calcium upon admission was greater than 14. Nephrology is following along, and we greatly appreciate their input. At this time, we will continue IV fluids, calcitonin, Sensipar and Lasix. Calcium has improved to 10, and she has had some mild improvement in her mental status. It appears that this is secondary to a primary hyperparathyroidism. Family was not at the bedside today for me to speak with, but Dr. Li had had several discussions with them in the prior days, and they were to be discussing whether or not they would wish to pursue any surgical intervention. 2. Chronic kidney disease stage III: Baseline creatinine appears to be in the low ones. She is currently slightly above baseline at 1.48. Continue IV fluids. We appreciate the input of nephrology 3. Hypothyroidism: Continue home Synthroid. 4. Hypertension: Continue home KARINA inhibitor. 5. Metabolic encephalopathy superimposed on dementia: This is likely secondary to the hypercalcemia. It appears to shown some mild improvement since admission. 6. Nonsustained V. tach on Sunday: No further Vtach. Continue to monitor electrolytes and monitor on telemetry. Did have 3-4 second pause today while vomiting. 7. Hypomagnesemia: Replacing 8. Fever: Mild fever to 100.7 last night; will check UA, Ucx, and blood cultures. Patient is not having any respiratory symptoms at this time. DVT prophylaxis: SCDs Dispo: pending work up of fever; after fever is resolved, will have to make definitive decision about surgery VS, I&O, 24H, Fishbone Vital Signs/I&O Vital Signs Date Time Temp Pulse Resp B/P (MAP) Pulse Ox O2 Delivery O2 Flow Rate FiO2 08/21/16 12:00 99.1 120 18 140/62 (88) 98 Room Air I&O- Last 24 Hours up to 6 AM 08/21/16 06:00 Intake Total 2430 ml Balance 2430 ml Laboratory Data 24H LABS Laboratory Tests 2 08/21/16 04:53: White Blood Count 6.1, Red Blood Count 3.56L, Hemoglobin 10.9L, Hematocrit 33.4L , Mean Corpuscular Volume 93.9, Mean Corpuscular Hemoglobin 30.7, Mean Corpuscular Hemoglobin Concent 32.7, Red Cell Distribution Width 12.9, Platelet Count 233, Neutrophils (%) (Auto) 68.9H, Lymphocytes (%) (Auto) 18.5L, Monocytes (%) (Auto) 8.6H, Eosinophils (%) (Auto) 1.6, Basophils (%) (Auto) 0.5 , Neutrophils # (Auto) 4.2, Lymphocytes # (Auto) 1.1L, Monocytes # (Auto) 0.5, Eosinophils # (Auto) 0.1, Basophils # (Auto) 0.0, Large Unclassified Cells % 2.0 , Large Unclassified Cells # 0.1, Anion Gap 8, Glomerular Filtration Rate 35.4, Blood Urea Nitrogen 32H, Creatinine 1.48H, Sodium Level 144, Potassium Level 4.0 , Chloride Level 113H, Carbon Dioxide Level 23, Calcium Level 10.0#, Aspartate Amino Transf (AST/SGOT) 19, Alanine Aminotransferase (ALT/SGPT) 22, Alkaline Phosphatase 74, Total Bilirubin 1.0, Total Protein 6.0L, Albumin 3.0L, Magnesium Level 1.6L, Albumin/Globulin Ratio 1.00, Parathyroid Hormone (Intact) 646.0H CBC/BMP Laboratory Tests 08/21/16 04:53 Red Blood Count 3.56 L, Mean Corpuscular Volume 93.9, Mean Corpuscular Hemoglobin 30.7, Mean Corpuscular Hemoglobin Concent 32.7, Red Cell Distribution Width 12.9, Neutrophils (%) (Auto) 68.9 H, Lymphocytes (%) (Auto) 18.5 L, Monocytes (%) (Auto) 8.6 H, Eosinophils (%) (Auto) 1.6, Basophils (%) ( Auto) 0.5, Neutrophils # (Auto) 4.2, Lymphocytes # (Auto) 1.1 L, Monocytes # ( Auto) 0.5, Eosinophils # (Auto) 0.1, Basophils # (Auto) 0.0, Calcium Level 10.0 #, Aspartate Amino Transf (AST/SGOT) 19, Alanine Aminotransferase (ALT/SGPT) 22 , Alkaline Phosphatase 74, Total Bilirubin 1.0, Total Protein 6.0 L, Albumin 3.0 L Microbiology Microbiology 08/21/16 Blood Culture, Received Pending 08/21/16 Blood Culture, Received Pending 08/15/16 Blood Culture - Final, Complete NO GROWTH AFTER 5 DAYS 08/15/16 Blood Culture - Final, Complete NO GROWTH AFTER 5 DAYS 08/16/16 Urine Culture - Final, Complete GIAN SUGGS August 21, 2016 13:45
--- NOTE | 2016-08-21 13:45 | IPN ---
DATE: 08/21/2016 SUBJECTIVE: Patient was seen and examined at the bedside today in the morning. She is awake. She is very hard of hearing, unable to communicate very well but she appropriately follows commands and is very pleasant. Her calcium level has improved to normal now. REVIEW OF SYSTEMS: Patient is unable to provide any reliable review of systems to me at this time, but she is otherwise pleasant and in no apparent clinical distress at this time. OBJECTIVE: VITAL SIGNS: Temperature 96.7 degrees Fahrenheit, blood pressure 102/58, pulse 80, respiratory rate of 18, saturating at 96% on room air. Intake and output: Urine output is not recorded well. She had four incontinent voids yesterday, two incontinent voids so far today. Weight on the bed scale is 72.7 kg. PHYSICAL EXAMINATION: GENERAL: Patient is awake and alert, oriented to herself, lying in the bed. HEAD and NECK EXAM: Pupils are equally round and reactive to light. Mucous membranes are moist. Neck is supple. There is no jugular venous distention (JVD). CARDIOVASCULAR: S1, S2, regular rate. No murmur, rub, or gallop. RESPIRATORY: Chest is clear to auscultation bilaterally. Bilateral equal air entry. No rales or rhonchi. ABDOMEN: Soft, obese, positive bowel sounds, nontender. No ascites. No organomegaly. EXTREMITIES: No clubbing or cyanosis. Pulses are 2+. CENTRAL NERVOUS SYSTEM (DIRECTOR OF MANUFACTURING OPERATIONS): No focal neurological deficits. She is awake and alert. She follows some commands but she is unable to communicate. SKIN: No rashes or ulcers. LABORATORY REVIEW: CBC showed WBC 6.1, hemoglobin 10.9, platelets 233. BMP showed sodium 144, potassium 4, chloride 113, bicarbonate is 23, BUN is 32, creatinine is 1.4, calcium 10, magnesium is 1.6, albumin is 3.0. PTH level is pending. Microbiology: Blood cultures done today are pending. CURRENT MEDICATIONS: Patient's medications were all reviewed by me. She is going to get magnesium sulfate 1 gram IV times two doses today. IV fluids have been stopped. Calcitonin has been stopped. Lasix has been stopped. There is no other change in the medications today. ASSESSMENT: 86-year-old female who was admitted with severe hypercalcemia and she was found to have primary hyperparathyroidism along with acute kidney injury. PLAN: 1. Primary hyperparathyroidism. Patient is elderly with dementia, multiple comorbidities. She is not a very good surgical candidate. We shall try to manage the patient medically with Sensipar, current dose is 60 mg by mouth twice a day. Repeat parathyroid hormone (PTH) level is pending today. 2. Severe hypercalcemia. Calcium level has improved to normal. Her IV Lasix, calcitonin and IV fluids have been stopped. Continue the Sensipar. The patient was also given a dose of zoledronic acid two days ago. 3. Acute kidney injury. It might have been secondary to dehydration and hypercalcemia. Creatinine has plateaued at 1.4. The patient's creatinine on admission was 1.18. IV Lasix has been stopped. Calcium is normalized. Continue to monitor the renal function. There is no metabolic abnormality at this time. 4. Hypomagnesemia. The patient is getting magnesium sulfate 1 gram IV times two doses today. 5. Hypertension. Blood pressure is acceptable at this time. Continue current dose of lisinopril.
--- NOTE | 2016-08-21 20:25 | CR ---
DATE OF CONSULTATION: 08/21/2016 REFERRING PHYSICIAN: Dr. Smith REASON FOR CONSULTATION: Transient AV block. HISTORY OF PRESENT ILLNESS: Mrs. Grant is previously unknown to me. She is a pleasant, but yet demented elderly lady, who was admitted on 08/15/2016 with altered mental status and severe hypercalcemia. She was treated with IV hydration, Lasix, zoledronic acid, calcitonin and her calcium level improved and by now has actually corrected. I was called by the attending physician because earlier today the patient had two brief episodes of high degree AV block. The first one of occurred at 11:40 a.m. and the second one was within a minute. They both revealed sinus rhythm with 3:1 conduction and pause longest 4.16 seconds. When the nurse observing telemetry noticed the abnormality, she ran into her room and found the patient vomiting. The AV block was very transient and promptly resolved with cessation of vomiting and it is now 07:16 p.m. and there has not been any recurrence. When I talked to the patient, she is unable to provide any history and she has no recollection of the event. She tells me that right now she feels comfortable, does not have any nausea, has no chest pain or shortness of breath. PAST MEDICAL HISTORY: Past medical history obtained principally from hospital records and the history is positive for dementia, chronic renal insufficiency, hypothyroidism, hypertension, degenerative joint disease, recurrent urinary tract infections. HOME MEDICATIONS: - aspirin 81 a day - calcitriol 0.25 a day - Sensipar 30 mg a daily - levothyroxine 88 mcg is a day - lisinopril 10 mg a day - mirtazapine 7.5 mg at bedtime - multivitamin - Lyrica 50 mg three times a day - vitamin D She reports allergies or intolerance to SULFA, CODEINE, IBUPROFEN, MEPERIDINE, MORPHINE, PROPOXYPHENE. SURGICAL HISTORY: Positive for appendectomy, hysterectomy and teeth extractions. FAMILY HISTORY: Unable to obtain. SOCIAL HISTORY: It appears that she is [facility] resident but I am not able to obtain anything else from the record. REVIEW OF SYSTEMS: Unable to obtain due to patient's dementia. PHYSICAL EXAMINATION Blood pressure 120/56, heart rate is principally in 80s. She is afebrile. Saturation is 96% on room air. She is alert and oriented times one to her person. She is very hard of hearing but answers most questions appropriately if she recalls the answer. Her jugular venous pulse is not up. I do not appreciate carotid bruit. Lungs are relatively clear to auscultation with fair air movement. Heart exam reveals regular rhythm. I do not appreciate gallop, rub or murmur. Abdomen is soft without tenderness. No peripheral edema. Neurologically, I did not do any formal testing. She seems to move all four extremities but there is generalized weakness. Speech is intact. As above, she is quite hard of hearing. LABORATORY Complete blood count (CBC): Hemoglobin 10.9, hematocrit 33, and platelet count is 233,000. Basic metabolic panel: Potassium 4.0, BUN 32, creatinine 1.5 for GFR 35, glucose 94, calcium is 10.0, magnesium 1.6 and albumin 3.0. Her PTH is 646. Imaging revealed essentially normal chest x-ray with the exception of some chronic fibrotic pulmonary changes. Renal ultrasound revealed no evidence for hydronephrosis or obstruction. Thyroid ultrasound was relatively unremarkable, accounting for body habitus. ECGs: There are two ECGs on the chart, both reveal sinus rhythm with first-degree AV block, left anterior fascicular hemiblock, left ventricular hypertrophy and secondary repolarization abnormalities. ASSESSMENT AND PLAN: Mrs. Grant is a 86-year-old lady who has advanced dementia and presented with severe hypercalcemia. The electrolyte abnormality has been corrected, but she had an episode of transient high degree AV block but it appears that during the event she was vomiting. The AV block resolved since cessation of symptoms and there has not been any recurrence. In this scenario, it appears to be highly likely to be vasovagal event. Consequently, I do not recommend any further intervention other than observation in this setting. Should there be frequent recurrences, then we can consider potentially pacemaker placement, provided the episodes are very prolonged. Obviously, we would have to get consent from her family. At this point, though I do not recommend any further interventions. VICKY
[2016-08-22 04:00] VITALS: BP 147/58
[2016-08-22 05:36] LABS: BASO % 0.4 % (0.0-1.0); EOS # 0.4 K/mm3 (0.0-0.50); EOS % 4.4 % (0.0-3.0); LARGE UNSTAINED CELL # 0.2 K/mm3 (0.0-0.4); LARGE UNSTAINED CELL % 2.9 % (0.0-4.0); LYMPH # 1.6 K/mm3 (1.5-4.5); LYMPH % 20.5 % (24.0-44.0); MEAN CORPUSCULAR HEMOGLOBIN 31.9 pg (27.0-33.0); MEAN CORPUSCULAR HGB CONC 33.1 g/dl (32.0-36.5); MEAN CORPUSCULAR VOLUME 96.4 fl (80.0-96.0); MONO # 0.6 K/mm3 (0.0-0.8); MONO % 8.1 % (0.0-5.0); NEUTROPHILS % 63.7 % (36.0-66.0); PLATELET COUNT, AUTOMATED 231 k/mm3 (150-450); RED CELL DISTRIBUTION WIDTH 12.9 % (11.5-14.5); WHITE BLOOD COUNT 7.9 K/mm3 (4.0-10.0)
[2016-08-22 05:53] LABS: ALBUMIN/GLOBULIN RATIO 0.88 (1.00-1.93); BILIRUBIN,TOTAL 0.9 MG/DL (0.2-1.0); CALCIUM LEVEL 9.4 MG/DL (8.8-10.2); CREATININE FOR GFR 1.42 MG/DL (0.55-1.02); GLOMERULAR FILTRATION RATE 37.2 (>32); MAGNESIUM LEVEL 1.8 MG/DL (1.8-2.4); POTASSIUM SERUM 3.5 MEQ/L (3.5-5.1); TOTAL PROTEIN 6.4 GM/DL (6.4-8.2)
[2016-08-22 08:00] VITALS: BP 132/78
--- NOTE | 2016-08-22 08:15 | IPNPDOC ---
Subjective Date Seen The patient was seen on 08/22/16. Subjective Chief Complaint/HPI The patient is a 86-year-old female admitted with a reason for visit of Hypercalcemia. General: Reports: Other Symptoms (Poor historian. Baseline dementia.) Constitutional: Denies: Chills, Fever, Malaise, Night Sweats, Weakness, Fatigue , Weight Loss, Lethargy, Other Eyes: Denies: Pain, Vision change, Conjunctivae inflammation, Eyelid inflammation, Redness, Other ENT: Denies: Head Aches, Ear Pain, Dysphagia, Sinus Congestion, Post Nasal Drip , Sore Throat, Epistaxis, Other Symptoms Skin: Denies: Rash, Lesions, Jaundice, Bruising, Itching, Dry, Breakdown, Nail Changes, Other Pulmonary: Denies: Dyspnea, Cough, Pleuritic Chest Pain, Other Symptoms Cardiovascular: Denies: Chest Pain, Palpitations, Orthopnea, Paroxysmal Noc. Dyspnea, Edema, Lt Headedness, Other Symptoms Gastrointestinal: Denies: Nausea, Vomiting, Abdominal Pain, Diarrhea, Constipation, Melena, Hematochezia, Other Symptoms Genitourinary: Denies: Dysuria, Frequency, Incontinence, Hematuria, Retention, Other Symptoms Hematologic: Denies: Bruising, Bleeding Excessively, Petecchia, Purpura, Enlarged Lymph Nodes, Other Hematologic Endocrine: Denies: Polydipsia, Polyphagia, Polyuria, Heat Intolerance, Cold Intolerance, Other Endocrine Sx Musculoskeletal: Denies: Neck Pain, Back Pain, Shoulder Pain, Arm Pain, Hand Pain, Leg Pain, Foot Pain, Joint Pain, Muscle Pain, Spasms, Other Symptoms Neurological: Denies: Weakness, Numbness, Incoordination, Change in speech, Confusion, Seizures, Other Symptoms Objective Physical Examination General Exam: Positive: Alert, Cooperative, No Acute Distress, Other (elderly, frail) Eye Exam: Positive: PERRLA, Conjunctiva & lids normal ENT Exam: Positive: Atraumatic, Mucous membr. moist/pink Chest Exam: Positive: Clear to auscultation, Diminished Heart Exam: Positive: Rate Normal, Regular Rhythm Abdomen Exam: Positive: Normal bowel sounds, Soft, Negative: Tenderness Psych Exam: Negative: Oriented x 3 (oriented to person and place) Assessment /Plan Problems (1) Hypercalcemia Status: Resolved Discussed With: Family And Consumer Education Teacher, Patient Problem Specific Plan: Consult Specialist, Monitor Clinically, Repeat Labs Problem Text: 2/2 primary hyperparathyroidism medical management at this time ENT c/s appreciated follow as per nephrology, assistance appreciated continue sensipar (2) CKD (chronic kidney disease) Status: Chronic Response to Treatment: Stable Discussed With: Family And Consumer Education Teacher Problem Specific Plan: Consult Specialist, Repeat Labs Problem Text: follow as per nephrology grossly at baseline (3) HTN (hypertension) Status: Chronic Response to Treatment: Stable Problem Specific Plan: Monitor Clinically Problem Text: continue lisinopril (4) Hypothyroidism Status: Chronic Response to Treatment: Stable Problem Specific Plan: Monitor Clinically Problem Text: continue synthroid (5) Dementia Status: Chronic Response to Treatment: Improving Discussed With: Patient Problem Specific Plan: Monitor Clinically Problem Text: complicated with metabolic encephalopathy secondary to hypercalcemia - improving baseline dementia (6) Arrhythmia Status: Resolved Response to Treatment: Stable Discussed With: Family And Consumer Education Teacher Problem Specific Plan: Consult Specialist Problem Text: likely vasovagal episode no further events noted cardiology consultation appreciated (7) Fever Response to Treatment: Progressing Discussed With: Patient Problem Specific Plan: Monitor Clinically, Repeat Labs, Repeat Tests Problem Text: no source infection determined continue to monitor clinically Plan/VTE VTE Prophylaxis Ordered?: Yes (mechanical) Plan/Urinary Catheter Reason for insertion/continuin: Other-document below Plan IVF: Discontinue Diet: Continue Current Activity: Continue Current Therapy: PT, OT Medications: Replete Electrolytes IV Diagnostics: Repeat Labs in AM Anticipated Discharge: Longterm Disposition Transfer to floor today. Anticipate discharge return to [place] in 24-48 hours. VS, I&O, [facility] Vital Signs/I&O Vital Signs Date Time Temp Pulse Resp B/P (MAP) Pulse Ox O2 Delivery O2 Flow Rate FiO2 08/22/16 07:44 Room Air 08/22/16 04:00 98.2 74 18 147/58 (87) 93 I&O- Last 24 Hours up to 6 AM 08/22/16 06:00 Intake Total 1850 ml Output Total 800 ml Balance 1050 ml Laboratory Data 24H LABS Laboratory Tests 2 08/21/16 16:00: Urine Appearance CLEAR, Urine Color YELLOW, Urine pH 5.0, Urine Specific [place] 1.008, Urine Protein NEGATIVE, Urine Glucose (UA) NEGATIVE, Urine Ketones NEGATIVE, Urine Urobilinogen 0.2, Urine Bilirubin NEGATIVE, Urine Leukocyte Esterase NEGATIVE, Urine Blood NEGATIVE, Urine Nitrite NEGATIVE, Urine WBC (Auto) 2, Urine RBC (Auto) 1, Urine Hyaline Casts (Auto) 1, Urine Bacteria (Auto) 1+H, Urine Squamous Epithelial Cells 0, Urine Mucus (Auto) SMALL , Urine Sperm (Auto) 08/22/16 05:20: White Blood Count 7.9, Red Blood Count 3.53L, Hemoglobin 11.3L, Hematocrit 34.0L , Mean Corpuscular Volume 96.4H, Mean Corpuscular Hemoglobin 31.9, Mean Corpuscular Hemoglobin Concent 33.1, Red Cell Distribution Width 12.9, Platelet Count 231, Neutrophils (%) (Auto) 63.7, Lymphocytes (%) (Auto) 20.5L, Monocytes (%) (Auto) 8.1H, Eosinophils (%) (Auto) 4.4H, Basophils (%) (Auto) 0.4, Neutrophils # (Auto) 5.0, Lymphocytes # (Auto) 1.6, Monocytes # (Auto) 0.6, Eosinophils # (Auto) 0.4, Basophils # (Auto) 0.0, Large Unclassified Cells % 2.9 , Large Unclassified Cells # 0.2, Anion Gap 8, Glomerular Filtration Rate 37.2, Blood Urea Nitrogen 34H, Creatinine 1.42H, Sodium Level 141, Potassium Level 3.5 , Chloride Level 109H, Carbon Dioxide Level 24, Calcium Level 9.4, Aspartate Amino Transf (AST/SGOT) 25, Alanine Aminotransferase (ALT/SGPT) 27, Alkaline Phosphatase 76, Total Bilirubin 0.9, Total Protein 6.4, Albumin 3.0L, Magnesium Level 1.8, Albumin/Globulin Ratio 0.88L CBC/BMP Laboratory Tests 08/22/16 05:20 Red Blood Count 3.53 L, Mean Corpuscular Volume 96.4 H, Mean Corpuscular Hemoglobin 31.9, Mean Corpuscular Hemoglobin Concent 33.1, Red Cell Distribution Width 12.9, Neutrophils (%) (Auto) 63.7, Lymphocytes (%) (Auto) 20.5 L, Monocytes (%) (Auto) 8.1 H, Eosinophils (%) (Auto) 4.4 H, Basophils (%) (Auto) 0.4, Neutrophils # (Auto) 5.0, Lymphocytes # (Auto) 1.6, Monocytes # ( Auto) 0.6, Eosinophils # (Auto) 0.4, Basophils # (Auto) 0.0, Calcium Level 9.4, Aspartate Amino Transf (AST/SGOT) 25, Alanine Aminotransferase (ALT/SGPT) 27, Alkaline Phosphatase 76, Total Bilirubin 0.9, Total Protein 6.4, Albumin 3.0 L Microbiology Microbiology 08/21/16 Blood Culture - Preliminary, Resulted No growth after 24 hours . All specim... 08/21/16 Blood Culture - Preliminary, Resulted No growth after 24 hours . All specim... 08/15/16 Blood Culture - Final, Complete NO GROWTH AFTER 5 DAYS 08/15/16 Blood Culture - Final, Complete NO GROWTH AFTER 5 DAYS 08/21/16 Urine Culture, Received Pending 08/16/16 Urine Culture - Final, Complete LAURA FLYNN MD August 22, 2016 08:15
[2016-08-22] MEDS: ASPIRIN 81 MG CHEW TABLET PO SCH ×2 (09:00→13:03)
[2016-08-22] MEDS: MULTIVITAMINS/MINERALS THERAP 1 TAB PO SCH (09:00)
[2016-08-22] MEDS: PREGABALIN 50 MG CAP (LYRICA) PO SCH ×3 (09:00→20:03)
[2016-08-22] MEDS: LEVOTHYROXINE 0.088 MG TAB (88 MCG) PO SCH (09:00)
[2016-08-22] MEDS: NYSTATIN 100,000 UNITS/GM TOPICAL PWD 15 GM TOP SCH ×2 (09:00→20:04)
[2016-08-22] MEDS: CINACALCET 30 MG TAB (SENSIPAR) PO SCH ×2 (09:00→20:04)
[2016-08-22] MEDS: LISINOPRIL 10 MG TAB PO SCH (09:00)
[2016-08-22 12:00] VITALS: BP 126/72
--- NOTE | 2016-08-22 13:47 | IPN ---
DATE: 08/22/2016 SUBJECTIVE: Patient was seen and examined at the bedside today in the morning. She was awake and alert, sitting comfortably. She is much more coherent. Her calcium level has normalized. Her PTH is also trending down. REVIEW OF SYSTEMS: Patient denies any fevers, chills, rigors, headache, nausea, vomiting, chest pain, shortness of breath, pain in the abdomen, constipation or diarrhea. The rest of the review of systems is negative. OBJECTIVE: VITAL SIGNS: Temperature is 98.1 degrees Fahrenheit, blood pressure 132/78, pulse 72, respiratory rate of 18, saturating 97% on room air. Intake and output: Urine output is not recorded well. She had eight incontinent voids yesterday, one void so far today. Weight on the bed scale is stable at 74.6 kg. PHYSICAL EXAMINATION: GENERAL: Patient is awake and alert, oriented times two. Lying in bed. No apparent distress. HEAD and NECK EXAM: Pupils are equally round and reactive to light. Mucous membranes are moist. Neck is supple. There is no jugular venous distention (JVD). CARDIOVASCULAR: S1, S2, regular rate. No murmur, rub, or gallop. RESPIRATORY: Chest is clear to auscultation bilaterally. Bilateral equal air entry. No rales or rhonchi. ABDOMEN: Soft, obese, positive bowel sounds, nontender. No ascites. No organomegaly. EXTREMITIES: No clubbing or cyanosis. Pulses are 2+. CENTRAL NERVOUS SYSTEM (SCRAP DEALER): No focal neurological deficits. She is awake and alert. She is oriented to herself and place. SKIN: No rashes or ulcers. LABORATORY REVIEW: CBC showed WBC 7.9, hemoglobin 11.3, platelets are 231. BMP showed sodium 141, potassium 3.5, chloride 109, bicarbonate is 24, BUN is 34, creatinine is 1.4, calcium is 9.4, albumin is 3.0. PTH is 646, it was 893 on 08/17/2016. CURRENT MEDICATIONS: Patient's medications were all reviewed by me. She continues to be on Sensipar 60 mg by mouth twice a day. There is no other change in the medications today. ASSESSMENT: 86-year-old female who was initially admitted with severe hypercalcemia. She was later on found to have primary hyperparathyroidism along with acute kidney injury. PLAN: 1. Primary hyperparathyroidism. Patient is not a good surgical candidate and her family is not ready to give consent for surgery either. She is being medically managed with high dose of Sensipar. Continue Sensipar 60 mg by mouth twice a day. PTH level is trending down. 2. Hypercalcemia. The patient's calcium level has improved. She is status post IV Lasix, calcitonin and zoledronic acid. Continue to continue monitor calcium level for now. 3. Acute kidney injury. The patient's creatinine has plateaued at around 1.4. Continue to encourage oral hydration. Renal function is stable at this time. 4. Hypertension. Blood pressure is stable with the current dose of Lisinopril. DISPOSITION: The patient's renal function is stable. Calcium has improved to normal. The patient can be discharged from a nephrology standpoint. She needs to followup with nephrology within 2 weeks after discharge from the hospital. Plan of care was discussed with the hospitalist, Dr. Demond Santos.
[2016-08-22 16:00] VITALS: BP 128/76
[2016-08-22 20:00] VITALS: BP 134/67
[2016-08-22 23:59] VITALS: BP 112/76
[2016-08-23 04:00] VITALS: BP 107/55
[2016-08-23 06:27] LABS: BASO % 0.6 % (0.0-1.0); EOS # 0.4 K/mm3 (0.0-0.50); LARGE UNSTAINED CELL # 0.2 K/mm3 (0.0-0.4); LYMPH % 21.7 % (24.0-44.0); MEAN CORPUSCULAR HEMOGLOBIN 30.9 pg (27.0-33.0); MEAN CORPUSCULAR HGB CONC 32.7 g/dl (32.0-36.5); MEAN CORPUSCULAR VOLUME 94.4 fl (80.0-96.0); MONO # 0.6 K/mm3 (0.0-0.8); MONO % 6.7 % (0.0-5.0); NEUTROPHILS # 5.5 K/mm3 (1.8-7.7); PLATELET COUNT, AUTOMATED 244 k/mm3 (150-450); RED CELL DISTRIBUTION WIDTH 12.8 % (11.5-14.5); WHITE BLOOD COUNT 8.6 K/mm3 (4.0-10.0)
[2016-08-23 06:48] LABS: ALBUMIN 2.9 GM/DL (3.2-5.2); ALBUMIN/GLOBULIN RATIO 0.91 (1.00-1.93); CALCIUM LEVEL 9.3 MG/DL (8.8-10.2); CREATININE FOR GFR 1.28 MG/DL (0.55-1.02); GLOMERULAR FILTRATION RATE 41.9 (>32); POTASSIUM SERUM 3.4 MEQ/L (3.5-5.1); TOTAL PROTEIN 6.1 GM/DL (6.4-8.2)
[2016-08-23 08:02] VITALS: BP 110/71
[2016-08-23 09:00] VITALS: BP 108/70
[2016-08-23] MEDS: LISINOPRIL 10 MG TAB PO SCH (09:00)
[2016-08-23] MEDS: LEVOTHYROXINE 0.088 MG TAB (88 MCG) PO SCH (09:38)
[2016-08-23] MEDS: MULTIVITAMINS/MINERALS THERAP 1 TAB PO SCH (09:38)
[2016-08-23] MEDS: CINACALCET 30 MG TAB (SENSIPAR) PO SCH (09:38)
[2016-08-23] MEDS: PREGABALIN 50 MG CAP (LYRICA) PO SCH (09:41)
[2016-08-23] MEDS: NYSTATIN 100,000 UNITS/GM TOPICAL PWD 15 GM TOP SCH (09:42)
[2016-08-23] MEDS ORDERED: POTASSIUM CHLORIDE 10% LIQ 20 MEQ/15 ML UDC PO ONE (10:15)
[2016-08-23] MEDS ORDERED: SLF 3 ML SYR IV PRN (11:15)
[2016-08-23] MEDS ORDERED: CINA30TA PO (11:22)
--- NOTE | 2016-08-23 11:53 | DS.PDOC ---
Discharge Summary General Date of Admission Aug 15, 2016 at 16:31 Date of Discharge 08/23/16 Discharge Summary PROCEDURES PERFORMED DURING STAY: [None]. Consults: Cardiology - Dr. Meredith Nephrology - Dr. White ENT - Dr. Fernandez DISCHARGE DIAGNOSES: 1. Hypercalcemia. 2. CKD 3. HTN 4. Hypothyroidism 5. Dementia 6. vasovagal arrhythmia COMPLICATIONS/CHIEF COMPLAINT: Hypercalcemia. HOSPITAL COURSE: 86 female sent from [facility] for elevated calcium on routine blood work. Patient with baseline dementia, on admission oriented to person only. Appeared to be metabolic encephalopathy secondary to hypercalcemia on chronic dementia. Nephrology consulted for further assistance. ENT consulted for assistance. Hypercalcemia secondary to primary hyperparathryoidism. Not a surgical candidate, but responded well to medical management. Calcium normalized , patient returning to [facility] home. Hospital significant for AV block, cardiology consulted for assistance, deemed to be vasovagal etiology. DISCHARGE MEDICATIONS: Please see below. ALLERGIES: Please see below. PHYSICAL EXAMINATION ON DISCHARGE: VITAL SIGNS: Please see below. GENERAL: NAD HEENT: NC/AT, EOMI, PERRL NECK: supple CARDIOVASCULAR EXAMINATION: +S1S2, RRR RESPIRATORY EXAMINATION: CTA B/L ABDOMINAL EXAMINATION: soft, NT, +BS EXTREMITIES: no edema PSYCHIATRIC EXAMINATION: AAOx2- person and place LABORATORY DATA: Please see below. ACTIVITY: [As tolerated]. DIET: 2 gram sodium DISCHARGE INSTRUCTIONS: 1. Follow up PCP in 3-5 days. 2. Follow up nephrology in 10-14 days. ITEMS TO FOLLOWUP ON ON OUTPATIENT: 1. Follow up calcium levels. DISCHARGE CONDITION: [Stable]. TIME SPENT ON DISCHARGE: Greater than 30 minutes. Vital Signs/I&Os Vital Signs Date Time Temp Pulse Resp B/P (MAP) Pulse Ox O2 Delivery O2 Flow Rate FiO2 08/23/16 09:00 108/70 08/23/16 08:02 98.5 66 18 96 Room Air I&O- Last 24 Hours up to 6 AM 08/23/16 05:59 Intake Total 920 ml Output Total 0 ml Balance 920 ml Laboratory Data Labs 24H Laboratory Tests 2 08/23/16 06:19: White Blood Count 8.6, Red Blood Count 3.72L, Hemoglobin 11.5L, Hematocrit 35.1L , Mean Corpuscular Volume 94.4, Mean Corpuscular Hemoglobin 30.9, Mean Corpuscular Hemoglobin Concent 32.7, Red Cell Distribution Width 12.8, Platelet Count 244, Neutrophils (%) (Auto) 64.0, Lymphocytes (%) (Auto) 21.7L, Monocytes (%) (Auto) 6.7H, Eosinophils (%) (Auto) 5.0H, Basophils (%) (Auto) 0.6, Neutrophils # (Auto) 5.5, Lymphocytes # (Auto) 2.0, Monocytes # (Auto) 0.6, Eosinophils # (Auto) 0.4, Basophils # (Auto) 0.0, Large Unclassified Cells % 2.0 , Large Unclassified Cells # 0.2, Anion Gap 10, Glomerular Filtration Rate 41.9 , Blood Urea Nitrogen 35H, Creatinine 1.28H, Sodium Level 141, Potassium Level 3.4L, Chloride Level 109H, Carbon Dioxide Level 22, Calcium Level 9.3, Aspartate Amino Transf (AST/SGOT) 23, Alanine Aminotransferase (ALT/SGPT) 27, Alkaline Phosphatase 79, Total Bilirubin 1.0, Total Protein 6.1L, Albumin 2.9L, Albumin/Globulin Ratio 0.91L CBC/BMP Laboratory Tests 08/23/16 06:19 Red Blood Count 3.72 L, Mean Corpuscular Volume 94.4, Mean Corpuscular Hemoglobin 30.9, Mean Corpuscular Hemoglobin Concent 32.7, Red Cell Distribution Width 12.8, Neutrophils (%) (Auto) 64.0, Lymphocytes (%) (Auto) 21.7 L, Monocytes (%) (Auto) 6.7 H, Eosinophils (%) (Auto) 5.0 H, Basophils (%) (Auto) 0.6, Neutrophils # (Auto) 5.5, Lymphocytes # (Auto) 2.0, Monocytes # ( Auto) 0.6, Eosinophils # (Auto) 0.4, Basophils # (Auto) 0.0, Calcium Level 9.3, Aspartate Amino Transf (AST/SGOT) 23, Alanine Aminotransferase (ALT/SGPT) 27, Alkaline Phosphatase 79, Total Bilirubin 1.0, Total Protein 6.1 L, Albumin 2.9 L Microbiology Microbiology 08/21/16 Blood Culture - Preliminary, Resulted No Growth after 48 hours. All Specime... 08/21/16 Blood Culture - Preliminary, Resulted No Growth after 48 hours. All Specime... 08/15/16 Blood Culture - Final, Complete NO GROWTH AFTER 5 DAYS 08/15/16 Blood Culture - Final, Complete NO GROWTH AFTER 5 DAYS 08/21/16 Urine Culture - Final, Complete 08/16/16 Urine Culture - Final, Complete Discharge Medications Scheduled (Preservision Areds 2) 1 Cap Cap, 1 CAP PO BID, (Reported) (Aspirin) 81 Mg Chw, 81 MG PO DAILY, (Reported) Cinacalcet Hydrochloride (Sensipar) 30 Mg Tab, 60 MG PO BID Levothyroxine Sodium (Synthroid) 88 Mcg Tab, 88 MCG PO DAILY, (Reported) Lisinopril (Lisinopril) 10 Mg Tab, 10 MG PO DAILY, (Reported) Mirtazapine (Mirtazapine) 7.5 Mg Tab, 7.5 MG PO QHS, (Reported) Multivitamins (Multivitamin Adults) 1 Tab Tab, 1 TAB PO DAILY, (Reported) Pregabalin (Lyrica) 50 Mg Cap, 50 MG PO TID, (Reported) Vitamin D (Vitamin D) 2,000 Unit Cap, 2,000 UNIT PO DAILY, (Reported) Scheduled PRN (Saline Nasal [place]) 0.65 % Spr, 0.65 % NA Q2H PRN for NASAL DRYNESS, (Reported ) (Proctozone-Hc) 2.5 % Cre, 2.5 % LA Q4H PRN for HEMORRHOIDS, (Reported) Acetaminophen (Acetaminophen) 325 Mg Tab, 650 MG PO Q4H PRN for PAIN OR FEVER, ( Reported) Bisacodyl (Dulcolax) 10 Mg Sup, 10 MG LA DAILY PRN for CONSTIPATION, (Reported) Cetirizine HCl (Cetirizine HCl) 10 Mg Tab, 10 MG PO DAILY PRN for allergies, ( Reported) Milk Of Magnesia (Milk of Magnesia Concentr) 30 Ml Conc, 10 ML PO for CONSTIPATION, (Reported) Sodium Phosphate/Biphosphate (Enema 7-19 gm/118Ml) 1 Opal Opal, 1 OPAL LA DAILY PRN for CONSTIPATION, (Reported) Allergies Coded Allergies: Sulfa Drugs (Verified Allergy, Intermediate, RASH HIVES, 04/01/13) Codeine (Verified Allergy, Mild, RED FLUSHING RASH, 04/01/13) Ibuprofen (Verified Allergy, Mild, RED FLUSHING RASH, 04/01/13) Meperidine (Verified Allergy, Mild, RED FLUSHING RASH, 04/01/13) Morphine (Verified Allergy, Mild, RED FLUSHING RASH, 04/01/13) Propoxyphene (Verified Adverse Reaction, Mild, NAUSEA, 04/02/13) LAURA FLYNN MD August 23, 2016 11:53
[2016-08-23] MEDS ORDERED: SLF 3 ML SYR IV SCH (14:00)
--- NOTE | 2016-08-24 01:02 | IPN ---
DATE: 08/23/2016 SUBJECTIVE: Patient was seen and examined at the bedside today in the morning. Her daughter was also present at the bedside. Patient is much more awake, alert, coherent, and pleasant. Her renal function is improving, and calcium is within normal limits. REVIEW OF SYSTEMS: Patient is unable to provide any reliable review of systems because she is hard of hearing, and she has dementia, but otherwise she appears to be in no apparent distress at this time. OBJECTIVE: Vital signs: Temperature is 98.5 degrees Fahrenheit, blood pressure is 110/71, pulse is 66, respiratory rate of 18, saturating 96% on room air. Intake and output: Urine output is not recorded. Patient had three incontinent voids yesterday, one void so far today. Weight in the bed scale is stable at 75 kg. PHYSICAL EXAMINATION: GENERAL: Patient is awake, alert, oriented times two, lying in the bed in no apparent distress. HEAD AND NECK: Extraocular muscles intact. Pupils equally round and reactive to light. Mucous membranes are moist. Neck is supple. There is no jugular venous distention (JVD). CARDIOVASCULAR: S1, S2, regular rate. No murmur, rub, or gallop. RESPIRATORY: Chest is clear to auscultation bilaterally. Bilateral equal air entry. No rales or rhonchi. ABDOMEN: Soft, obese. Positive bowel sounds. Nontender. No ascites. No organomegaly. EXTREMITIES: NO clubbing or cyanosis. Pulses are 2+. CENTRAL NERVOUS SYSTEM: No focal neurological deficit. Patient awake and alert, and she is oriented times two. LABORATORY REVIEW: CBC showed hemoglobin 11.5, platelets are 244. BMP showed sodium 141, potassium 3.4, chloride 109, bicarbonate 22, BUN 35, creatinine is 1.2; it was 1.4 yesterday. Calcium is 9.3. Albumin is 2.9. CURRENT MEDICATIONS: Patient's current medications were all reviewed by me. She continues to be on Sensipar 60 mg by mouth twice a day. There is no other change in the medications today. Patient was given a dose of potassium chloride 40 mEq by mouth times one dose. ASSESSMENT: An 86-year-old female this admission with hypercalcemia secondary to primary hyperparathyroidism. PLAN: 1. Primary hyperparathyroidism. Her PTH level is trending down. Continue current dose of Sensipar 60 mg by mouth twice a day. 2. Hypercalcemia. Calcium has improved to normal. Continue to periodically monitor the calcium levels to watch for hypocalcemia after administration of zoledronic acid. 3. Acute kidney injury. Patient's renal function is improving now. Creatinine has come down to 1.2. Continue to encourage oral hydration. 4. Hypertension. Blood pressure is stable with current dose of lisinopril. Okay to continue lisinopril for now. DISPOSITION: It is okay to discharge the patient from nephrology standpoint. She can followup with nephrology service within 2 weeks after discharge from the hospital. Plan of care was discussed with the hospitalist.
== END 2016-08-23 13:13 | DRG 643 ==
LOC: M ED 15:23 → M ED INP 16:31 → M PCU 19:52
PROVIDERS: ADMIT Internal Medicine; ATTEND Hospitalist
DX: E21.0 Primary hyperparathyroidism (principal); G93.41 Metabolic encephalopathy; N17.9 Acute kidney failure, unspecified; I44.2 Atrioventricular block, complete; F03.90 Unspecified dementia, unspecified severity, without behavioral disturbance, psychotic disturbance, mood disturbance, and anxiety; N18.3 Chronic kidney disease, stage 3 (moderate); E03.9 Hypothyroidism, unspecified; I12.9 Hypertensive chronic kidney disease with stage 1 through stage 4 chronic kidney disease, or unspecified chronic kidney disease; M19.90 Unspecified osteoarthritis, unspecified site; R26.81 Unsteadiness on feet; I44.4 Left anterior fascicular block; Z88.2 Allergy status to sulfonamides; Z88.5 Allergy status to narcotic agent; Z88.6 Allergy status to analgesic agent; Z88.8 Allergy status to other drugs, medicaments and biological substances; D72.829 Elevated white blood cell count, unspecified; K59.00 Constipation, unspecified; H91.93 Unspecified hearing loss, bilateral; E66.9 Obesity, unspecified; Z68.30 Body mass index [BMI] 30.0-30.9, adult; Z87.440 Personal history of urinary (tract) infections; Z79.82 Long term (current) use of aspirin

== ENCOUNTER → 2016-08-30 | Outpatient (REF) ==
[~2016-08-30] MED LIST changes: +ACET-654 PO; +ASPI81CH PO; +CALC1CAP31 PO; +CINA30TA PO; +DULC10SU2 PR; +ENEMENE3 PR; +LISI10TA4 PO; +MOM30SS PO; +MULT1TAB10 PO; +PROC1CRE5 PR
[2016-08-30 07:57] LABS: MEAN CORPUSCULAR HEMOGLOBIN 31.9 pg (27.0-33.0); MEAN CORPUSCULAR HGB CONC 33.3 g/dl (32.0-36.5); MEAN CORPUSCULAR VOLUME 95.6 fl (80.0-96.0); WHITE BLOOD COUNT 13.2 K/mm3 (4.0-10.0)
[2016-08-30 08:13] LABS: CALCIUM LEVEL 9.2 MG/DL (8.8-10.2); CREATININE FOR GFR 1.72 MG/DL (0.55-1.02); GLOMERULAR FILTRATION RATE 29.8 (>32); PHOSPHORUS LEVEL 2.8 MG/DL (2.5-4.9); POTASSIUM SERUM 4.2 MEQ/L (3.5-5.1)
== END ==
LOC: SKLAB3 08:00
PROVIDERS: ATTEND Internal Medicine
DX: E87.6 Hypokalemia (principal); N18.9 Chronic kidney disease, unspecified